=== PATIENT | male | born 1945 | race Caucasian/White ===

== ENCOUNTER 2016-12-27 09:00 | Emergency (ER) | payer OTHER, BC ==
[2016-12-27 09:18] VITALS: BP 138/84; PULSE 82; TEMP 97.7; BMI 29.3
[2016-12-27 09:25] LABS: PH,URINE 5.5 (4.5-8); URINE APPEARANCE Clear; URINE BILIRUBIN Negative (NEGATIVE); URINE GLUCOSE (UA) Negative (NEGATIVE); URINE KETONE Negative (NEGATIVE); URINE LEUK ESTERASE Negative (NEGATIVE); URINE NITRITE Negative (NEGATIVE); URINE PROTEIN Negative (NEGATIVE); URINE UROBILINOGEN 0.2 (0.2-1.0)
[2016-12-27 09:27] LABS: URINE BLOOD 1+ (NEGATIVE); URINE COLOR AMBER
[2016-12-27 09:47] LABS: URINE RBC 0-3 /hpf (0-3); URINE WBC 0-2 (3-5)
[2016-12-27] MEDS ORDERED: traMADol HCL 50 MG TABLET PO ONE (09:48)
--- NOTE | 2016-12-27 09:49 | PDOC ---
History of Present Illness - General Chief Complaint: Pain Stated Complaint: RIGHT GROIN PAIN Time Seen by Provider: 12/27/16 09:16 History Source: Patient Exam Limitations: No Limitations - History of Present Illness Travel History: No Initial Comments: 12/27/16 09:48 71y M hx of prostate ca s/p resection, htn, hl, PE on eliquis, kidney stones, presents with approx 1 week of R inguinal pain. The pt states the pain started off as mild, but worsens intermittently, and was more significant last night, he rates it approx 5-7/10. pt has been active, but hasnt really noticed if activity has worsend it or not. He did note that yesterday he walked 2 miles, and he was doing ok until the nigth when the pain worsened. Pt endorses feeling alittle bloated and gassy, but states that after passing gas/bms it does help resolved the bloated feeling but not the r inguinal pain. no noted masses/hernias. The patient denies any chest pain, shortness of breath, diaphoresis, nausea, vomiting, worsening of his pain after exertion. 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 Past History - Past Medical History Allergies/Adverse Reactions: Allergies Allergy/AdvReac Type Severity Reaction Status Date / Time tetanus immune globulin Allergy Severe Tongue and Verified 12/27/16 09:53 throat swelling enoxaparin sodium Allergy Verified 12/27/16 09:53 [From Lovenox] sulfamethoxazole Allergy Rash on Verified 12/27/16 09:53 [From Bactrim] palm of hand tetracycline [Tetracycline] Allergy Verified 12/27/16 09:53 trimethoprim [From Bactrim] Allergy Rash on Verified 12/27/16 09:53 palm of hand Penicillins AdvReac Severe dizzy Verified 12/27/16 09:53 TOMATO Allergy Tongue and Uncoded 12/27/16 09:53 throat swelling Home Medications: Ambulatory Orders Cholecalciferol (Vitamin D3) [Vitamin D3] 1,000 unit PO 2 CAPS DAILY capsule Famotidine [Pepcid] 40 mg PO BID PRN 12/27/16 Anemia: No Asthma: No Cancer: Yes (PROSTATE) Cardiac Disorders: No CVA: No COPD: No CHF: No DVT: Yes Dementia: No Diabetes: No GI Disorders: Yes (H/O COLONIC POLYPS) Disorders: Yes (PROSTATE CANCER) HTN: Yes Hypercholesterolemia: Yes Kidney Stones: Yes (LITHOTRIPSY) Liver Disease: Yes Seizures: No Thyroid Disease: No - Surgical History Abdominal Surgery: Yes Appendectomy: Yes Cardiac Surgery: No Cholecystectomy: No Lung Surgery: No Neurologic Surgery: No Orthopedic Surgery: Yes (LEFT KNEE SURGERY) - Immunization History Immunization Up to Date: No (ALLERGIC) - Suicide/Smoking/Psychosocial Hx Smoking Status: No Smoking History: Never smoked Have you smoked in the past 12 months: No Number of Cigarettes Smoked Daily: 0 Hx Alcohol Use: Yes Drug/Substance Use Hx: No Substance Use Type: None Hx Substance Use Treatment: No Review of Systems - Review of Systems Able to Perform ROS?: Yes Comments:: 12/27/16 09:56 Constitutional - no reported Fever, Chills, HEENT: no reported vision changes, sore throat Respiratory: no reported cough, sob, hemoptysis Cardiac: no reported chest pain, palpitations, light headedness, leg swelling Abd/GI: +abd pain, bloated/gassy no reported nausea, vomiting, blood per rectum , melena, diarrhea : no reported dysuria, frequency, discharge Musculskelatal - no reported back pain, joint swelling skin - no reported bruising, erythema, rash neurological: no reported headache, numbness, focal weakness, tingling, ataxia, hematologic: no reported anemia, easy bruising, easy bleeding *Physical Exam - Vital Signs Last Vital Signs Temp Pulse Resp BP Pulse Ox 97.7 F 82 15 138/84 100 12/27/16 09:09 12/27/16 09:09 12/27/16 09:09 12/27/16 09:09 12/27/16 09:09 - Physical Exam Comments: 12/27/16 09:57 GENERAL: The patient is awake, alert, and fully oriented, Nontoxic - in no acute distress. HEAD: Normocephalic, atraumatic. EYES: extraocular movements intact, sclera anicteric, conjunctiva clear. ENT: Normal voice, Moist mucous membranes. NECK: Normal range of motion, supple LUNGS: Breath sounds equal, clear to auscultation bilaterally. No wheezes, no rhonchi, no rales. HEART: Regular rate and rhythm, normal S1 and S2 without murmur, rub or gallop. ABDOMEN: Soft, nontender, normoactive bowel sounds. No guarding, no rebound. No CVA tenderness, no hernias appreciated : no testicular tenderness/erythmea/induration EXTREMITIES: Normal range of motion, no edema. No clubbing or cyanosis. No cords, erythema, or tenderness. NEUROLOGICAL: No facial assymetry, Normal speech PSYCH: Normal mood, normal affect. SKIN: Warm, Dry, normal turgor, Heart Score/ECG Review - ECG Impressions Comment:: 12/27/16 11:55 Twelve-lead EKG was performed and reviewed by me. There is normal sinus rhythm with a normal rate. Rate of 67 The axis is normal. The intervals are normal. There is normal R wave progression There are no ST or T wave abnormalities. No significant changes when compared with prior ekg ED Treatment Course - ADDITIONAL ORDERS Additional order review: Laboratory Results 12/27/16 09:19 Urine Color Sherice Urine Appearance Clear Urine pH 5.5 Ur Specific [place] 1.010 Urine Protein Negative Urine Glucose (UA) Negative Urine Ketones Negative Urine Blood 1+ H Urine Nitrite Negative Urine Bilirubin Negative Urine Urobilinogen 0.2 Ur Leukocyte Esterase Negative Urine RBC 0-3 Urine WBC 0-2 Ur Epithelial Cells Rare Medical Decision Making - Medical Decision Making 12/27/16 09:57 71y m presenting with r adnexal pain for about a week that wornsed last night w/ o n/v, diarhea, hematuria, dysuria differential for the pts symptmos includes kidney stones, msk pain pt had lab worked that showed his ckd ua with trace blood will ck another urine, i f+blood will obtain spiral ct will give pt some mesd for pain (rquested tramadol as it helped hi a few days ago) 12/27/16 11:[address] shows no acute pathology no stones pt feeling improfed suspect pts pain may be msk in nature will have pt rest, take tylnoel and fu with dr. shepherd mid next week to reasesss the pt will have pt come back to the ED for evaluation if pain worsens or he has any systemic complaints I discussed the physical exam findings, ancillary test results and final diagnoses with the patient. I answered all of the patient's questions. The patient was satisfied with the care received and felt comfortable with the discharge plan and treatment plan. The patient will call their primary care physician within 24 hours to arrange follow-up and will return to the Emergency Department with any new, persistent or worsening symptoms. *DC/Admit/Observation/Transfer Diagnosis at time of Disposition: Abdominal pain Qualifiers: Abdominal location: right lower quadrant Qualified Code(s): R10.31 - Right lower quadrant pain - Discharge Dispostion Disposition: HOME Condition at time of disposition: Improved Admit: No - Referrals Referrals: Dante Shepherd MD [Primary Care Provider] - - Patient Instructions Printed Discharge Instructions: DI for Abdominal Pain-Adult Additional Instructions: I suspect the nature of your pain may be muscular. Take tylenol for your pain. Rest, avoid any strenous activities. Return to the emergency department immediately with ANY new, persistent or worsening symptoms including worsening abdominal pain, fevers, inability to tolerate oral intake, chest pain, shortness of breath or any other concerns. Stay well hydrated. You MUST call and follow up with Dr Shepherd in 3 days for reevaluation. Your emergency department visit is not complete without a followup with your doctor for reevaluation. Please make sure your doctor reviews the results of your emergency evaluation. Print Language: ITALIAN
[2016-12-27] MEDS ORDERED: traMADol HCL 50 MG TABLET ONE (09:50)
--- NOTE | 2016-12-30 10:53 | EKG ---
Test Reason : Blood Pressure : / mmHG Vent. Rate : 067 BPM Atrial Rate : 067 BPM P-R Int : 190 ms QRS Dur : 094 ms QT Int : 398 ms P-R-T Axes : 026 -10 000 degrees QTc Int : 420 ms NORMAL SINUS RHYTHM Mild RVCd WHEN COMPARED WITH ECG OF 30-SEP-2014 08:42, INVERTED T WAVES HAVE REPLACED NONSPECIFIC T WAVE ABNORMALITY IN INFERIOR LEADS Confirmed by MD MIMI, BRITTANY ([id number]) on 12/30/2016 10:53:09 AM Referred By: Cookie HERNANDEZ Confirmed By:BRITTANY LE MD
== END 2016-12-27 12:00 | disposition home or self-care (01) ==
LOC: FER 09:00
DX: R10.31 Right lower quadrant pain (principal); I10 Essential (primary) hypertension; E78.5 Hyperlipidemia, unspecified; Z86.711 Personal history of pulmonary embolism; Z79.01 Long term (current) use of anticoagulants; Z85.46 Personal history of malignant neoplasm of prostate
CPT/HCPCS: 74176; 81003; 81015; 93005; 99282-25

== ENCOUNTER 2017-08-08 10:32 | Emergency (ER) | payer OTHER, BC ==
--- NOTE | 2017-08-08 10:36 | PDOC ---
History of Present Illness - General Chief Complaint: Pain Stated Complaint: CHEST PAIN ACROSS CHEST WORSE WITH MOVEMENT/TOUCH Time Seen by Provider: 08/08/17 10:36 History Source: Patient Exam Limitations: No Limitations - History of Present Illness Initial Comments: 08/08/17 11:20 Pt presents to the ED complaining of pleuritic chest pain that started last night. Pain is localized to a point on the R side of his chest between his third and fourth ribs. Pain is constant and 3-4 in severity, but becomes very sharp and 9-10 in intensity when he takes a deep breath. Denies shortness of breath, fever or cough. Denies injury to his chest wall or rash. History of PE , for which he takes eliquis. States that his PE presented with similar pain. Reports strict compliance with his eliquis. Denies cardiac history, and states that he had a CTA recently which shows no coronary disease. Has a remote history of prostate CA 08/08/17 11:24 Past History - Past Medical History Allergies/Adverse Reactions: Allergies Allergy/AdvReac Type Severity Reaction Status Date / Time tetanus immune globulin Allergy Severe Tongue and Verified 08/08/17 10:35 throat swelling enoxaparin sodium Allergy Verified 08/08/17 10:36 [From Lovenox] sulfamethoxazole Allergy Rash on Verified 08/08/17 10:36 [From Bactrim] palm of hand tetracycline [Tetracycline] Allergy Verified 08/08/17 10:36 trimethoprim [From Bactrim] Allergy Rash on Verified 08/08/17 10:36 palm of hand Penicillins AdvReac Severe dizzy Verified 08/08/17 10:37 TOMATO Allergy Tongue and Uncoded 08/08/17 10:38 throat swelling Home Medications: Ambulatory Orders Cholecalciferol (Vitamin D3) [Vitamin D3] 2,000 unit PO DAILY capsule 01/15/15 Famotidine [Pepcid] 40 mg PO PRN PRN 12/27/16 Rosuvastatin [Crestor -] 1 tab PO DAILY 08/08/17 Tramadol HCl 50 mg PO PRN 08/08/17 Anemia: No Asthma: No Cancer: Yes (PROSTATE) Cardiac Disorders: No CVA: No COPD: No CHF: No DVT: Yes Dementia: No Diabetes: No GI Disorders: Yes (H/O COLONIC POLYPS) Disorders: Yes (PROSTATE CANCER) HTN: Yes Hypercholesterolemia: Yes Kidney Stones: Yes (LITHOTRIPSY) Liver Disease: Yes Seizures: No Thyroid Disease: No - Surgical History Abdominal Surgery: Yes Appendectomy: Yes Cardiac Surgery: No Cholecystectomy: No Lung Surgery: No Neurologic Surgery: No Orthopedic Surgery: Yes (LEFT KNEE SURGERY) - Immunization History Immunization Up to Date: No (ALLERGIC) - Suicide/Smoking/Psychosocial Hx Smoking Status: No Smoking History: Never smoked Have you smoked in the past 12 months: No Number of Cigarettes Smoked Daily: 0 Hx Alcohol Use: Yes Drug/Substance Use Hx: No Substance Use Type: None Hx Substance Use Treatment: No Review of Systems - Review of Systems Able to Perform ROS?: Yes Is the patient limited Maori proficient: No Constitutional: No: Symptoms Reported, See HPI, Chills, Diaphoresis, Fever, Loss of Appetite, Malaise, Night Sweats, Weakness, Weight Stable, Unintentional Wgt. Loss, Unexplained wgt Loss, Other HEENTM: No: Symptoms Reported, See HPI, Eye Pain, Blurred Vision, Tearing, Recent change in vision, Double Vision, Cataracts, Ear Pain, Ocular Prothesis, Ear Discharge, Nose Pain, Nose Congestion, Tinnitus, Nose Bleeding, Hearing Loss , Throat Pain, Throat Swelling, Mouth Pain, Dental Problems, Difficulty Swallowing, Mouth Swelling, Other Respiratory: No: Symptoms reported, See HPI, Cough, Orthopnea, Shortness of Breath, SOB with Exertion, SOB at Rest, Stridor, Wheezing, Productive cough, Hemoptysis, Other Cardiac (ROS): Yes: Chest Pain. No: Symptoms Reported, See HPI, Edema, Irregular Heart Rate, Lightheadedness, Palpitations, Syncope, Chest Tightness, Other ABD/GI: No: Symptoms Reported, See HPI, Abdominal Distended, Abd. Pain w/ defecation, Blood Streaked Bowels, Constipated, Diarrhea, Difficulty Swallowing , Nausea, Poor Appetite, Poor Fluid Intake, Rectal Bleeding, Vomiting, Indigestion, Abdominal cramping, Tarry Stools, Other : No: Symptoms Reported, See HPI, Burning, Dysuria, Discharge, Frequency, Flank Pain, Hematuria, Incontinence, Pain, Urgency, Testicular Mass, Testicular Swelling, Lesions, Testicular Pain, Other Musculoskeletal: No: Symptoms Reported, See HPI, Back Pain, Gout, Joint Pain, Joint Swelling, Muscle Pain, Muscle Weakness, Neck Pain, Joint Stiffness, Other Integumentary: No: Symptoms Reported, See HPI, Bruising, Change in Color, Change in Hair/Nails, Dryness, Erythema, Flushing, Lesions, Lumps, Pallor, Pruritus, Rash, Sweating, Other Neurological: No: Symptoms reported, See HPI, Headache, Numbness, Paresthesia, Pre-Existing Deficit, Seizure, Tingling, Tremors, Weakness, Unsteady Gait, Ataxia, Dizziness, Other Psychiatric: No: Anxiety, Depression, Frequent Crying, Stressors, Sleep Pattern Change, Emotional Problems, Mood Swings, Change in Appetite, Other *Physical Exam - Physical Exam General Appearance: Yes: Nourished, Appropriately Dressed. No: Apparent Distress, Disheveled, Mild Distress, Moderate Distress, Severe Distress, Alcohol on Breath, Intoxicated, Cachetic, Obese, Thin, Other HEENT: positive: Normal ENT Inspection, Normal Voice Neck: positive: Supple Respiratory/Chest: positive: Chest Tender, Lungs Clear, Normal Breath Sounds. negative: Respiratory Distress, Accessory Muscle Use, Labored Respiration, Rapid RR, Decreased Breath Sounds, Paradoxal Breathing, Crackles, Rales, Rhonchi , Stridor, Wheezing, Hyperresonant, Dullness, Plerual Rub, Other Cardiovascular: positive: Regular Rhythm, Regular Rate, S1, S2 Gastrointestinal/Abdominal: positive: Flat, Soft Musculoskeletal: positive: Normal Inspection Extremity: positive: Normal Inspection Integumentary: positive: Normal Color, Dry, Warm Neurologic: positive: Fully Oriented, Alert, Normal Mood/Affect ED Treatment Course - LABORATORY CBC & Chemistry Diagram: 08/08/17 11:23 08/08/17 11:29 Medical Decision Making - Medical Decision Making 08/08/17 11:47 Pt presents to the ED complaining of pleuritic chest pain that began last night. History of PE, on eliquis. Pain is likely costochondritis, but PE and ACS remain on the differential. EKg shows normal sinus rhythm with no signs of ischemia. Will check labs and D dimer, and likely discharge home if d dimer is negative. Will check CT PE if d dimer is positive. 08/08/17 13:01 D dimer is negative. Patient feels improved after Iv tylenol. Will discharge home. *DC/Admit/Observation/Transfer Diagnosis at time of Disposition: Costochondral chest pain - Discharge Dispostion Disposition: HOME Condition at time of disposition: Good Decision to Admit order: No - Referrals - Patient Instructions Printed Discharge Instructions: DI for Atypical Chest Pain Additional Instructions: return to the ED for severe chest pain or shortness of breath, pain with fever, other new or worsening symptoms. Return for severe lightheadness or passing out. Call Dr. Shepherd for follow up on Thursday. - Post Discharge Activity
[2017-08-08 10:52] VITALS: BP 138/79; PULSE 83; TEMP 98.3; BMI 29.3
[2017-08-08 11:26] LABS: BASO % 2.4 % (0-2.0); EOS % 0.5 % (0-4.5); HEMATOCRIT 43.8 % (35.4-49); HEMOGLOBIN 14.9 GM/dl (11.7-16.9); LYMPH % 21.6 % (8-40); MCH 31.4 pg (25.7-33.7); MEAN CELL VOLUME 92.3 fl (80-96); MEAN PLT VOLUME 7.9 fl (7.5-11.1); MONO % 8.9 % (3.8-10.2); NEUT % 66.6 % (42.8-82.8); PLATELET COUNT 224 K/MM3 (134-434); RBC 4.75 M/mm3 (4.00-5.60); RDW 12.9 % (11.9-15.9); WHITE BLOOD COUNT 4.5 K/mm3 (4.0-10.8)
[2017-08-08 11:40] LABS: ALBUMIN 4.1 g/dl (3.5-5.0); ALK PHOS 47 U/L (32-92); ANION GAP 6 (8-16); BLOOD UREA NITROGEN 24 mg/dl (7-18); CALCIUM 8.9 mg/dl (8.4-10.2); CHLORIDE 104 mmol/L (98-107); CO2 27 mmol/L (22-28); CREATININE 1.5 mg/dl (0.6-1.3); GLUCOSE,RANDOM 103 mg/dl (74-106); POTASSIUM 4.5 mmol/L (3.5-5.1); SGOT/AST 19 U/L (10-42); SGPT/ALT 22 U/L (10-40); SODIUM 137 mmol/L (136-145); TOT PROT 6.3 g/dl (6.4-8.3)
[2017-08-08 11:42] LABS: BILIRUBIN,TOTAL < 0.5 mg/dl (0.2-1.0)
[2017-08-08] MEDS ORDERED: ACETAMINOPHEN 1000 MG/100 ML VIAL (NON FORMULARY) IVPB ONE (12:33)
[2017-08-08] MEDS ORDERED: ACETAMINOPHEN INJECTION 100 ML IVPB ONE (12:34)
--- NOTE | 2017-08-09 22:36 | EKG ---
Test Reason : Blood Pressure : / mmHG Vent. Rate : 074 BPM Atrial Rate : 074 BPM P-R Int : 188 ms QRS Dur : 100 ms QT Int : 384 ms P-R-T Axes : 044 -02 007 degrees QTc Int : 426 ms NORMAL SINUS RHYTHM INCOMPLETE RIGHT BUNDLE BRANCH BLOCK BORDERLINE ECG Confirmed by MAGDALENO CASTILLO MD ([id number]) on 08/09/2017 10:36:20 PM Referred By: RIC Confirmed By:MAGDALENO CASTILLO MD
== END 2017-08-08 13:20 | disposition home or self-care (01) ==
LOC: FER 10:32
PROC: 3E033NZ Introduction of Analgesics, Hypnotics, Sedatives into Peripheral Vein, Percutaneous Approach (ICD-10-PCS; principal; 2017-08-08)
DX: R07.89 Other chest pain (principal); M94.0 Chondrocostal junction syndrome [Tietze]; Z86.711 Personal history of pulmonary embolism; Z79.01 Long term (current) use of anticoagulants; Z85.46 Personal history of malignant neoplasm of prostate; I10 Essential (primary) hypertension; E78.00 Pure hypercholesterolemia, unspecified
CPT/HCPCS: 36415; 80053; 82550; 84484; 85025; 85379; 93005; 99283-25; J0131

== ENCOUNTER 2019-01-31 09:26 | Day surgery (SDC) | payer OTHER, BC ==
[2019-01-28 11:52] VITALS: BMI 29.9
[2019-01-31] MEDS ORDERED: PROPOFOL 20 ML ONE ×3 (10:25)
[2019-01-31 11:34] VITALS: TEMP 97.6
[2019-01-31 11:56] VITALS: BP 122/76; PULSE 70
--- NOTE | 2019-02-02 17:28 | PATH ---
Surgical Pathology Report Patient Name: ALEXANDRO SNOWDEN JR [facility]. Rec. #: [id number] /Age/Gender: 1945 (Age: 73) / M Account: [id number] Location: [facility] Taken: 01/31/2019 Received: 01/31/2019 Reported: 02/02/2019 Physicians: Samson Gastelum M.D. Specimen(s) Received A: SECOND PORTION DUODENUM B: ANTRUM Clinical History GERD, history of polyps, family history of colon cancer Postoperative diagnosis: Gastritis, diverticulosis Final Diagnosis A. DUODENUM, SECOND PORTION, BIOPSY: DUODENAL MUCOSA WITHOUT SIGNIFICANT PATHOLOGIC FINDINGS. B. GASTRIC ANTRUM, BIOPSY: GASTRIC ANTRAL MUCOSA WITH MILD CHRONIC GASTRITIS. IMMUNOHISTOCHEMICAL STAIN FOR H. PYLORI IS NEGATIVE. Electronically Signed Laurie Dotson M.D. Gross Description A. Received in formalin, labeled "biopsy second portion of duodenum" are 2 gray, irregular portions of soft tissue averaging 0.4 cm. in greatest dimension. The specimens are submitted in toto in one cassette. B. Received in formalin, labeled "biopsy gastric antrum" are 2 gray, irregular portions of soft tissue averaging 0.3 cm. in greatest dimension. The specimens are submitted in toto in one cassette. 02/01/2019 saudi02/01/2019
== END 2019-01-31 12:00 | disposition home or self-care (01) ==
LOC: FASU-ENDO 09:26
PROVIDERS: ATTEND Internal Medicine Gastroenterology
PROC: 0DB98ZX Excision of Duodenum, Via Natural or Artificial Opening Endoscopic, Diagnostic (ICD-10-PCS; 2019-01-31)
PROC: 0DB68ZX Excision of Stomach, Via Natural or Artificial Opening Endoscopic, Diagnostic (ICD-10-PCS; 2019-01-31)
PROC: 0DJD8ZZ Inspection of Lower Intestinal Tract, Via Natural or Artificial Opening Endoscopic (ICD-10-PCS; principal; 2019-01-31 10:49)
DX: K29.50 Unspecified chronic gastritis without bleeding (principal); K57.30 Diverticulosis of large intestine without perforation or abscess without bleeding; Z86.010 Personal history of colon polyps; Z80.0 Family history of malignant neoplasm of digestive organs; Z83.71 Family history of colonic polyps; R12 Heartburn
CPT/HCPCS: 43239; G0105; 88305-TC; 88342-TC

== ENCOUNTER 2019-02-02 19:28 | Emergency (ER) | payer OTHER, BC ==
[2019-02-02 19:47] VITALS: BP 127/82; PULSE 96; TEMP 98.5; BMI 29.9
[2019-02-02] MEDS ORDERED: DALBAVANCIN HCL 1,500 MG in DEXTROSE 5%-WATER - 500 ML IVPB ONE (19:48)
[2019-02-02] MEDS ORDERED: DALBAVANCIN HCL 500 MG VIAL (RESTRICTED TO ID ONLY) IVPB ONE (19:57)
--- NOTE | 2019-02-02 20:00 | PDOC ---
Documentation entered by Isabel Villalta SCRIBE, acting as scribe for Michael Macdonald MD. Michael Macdonald MD: This documentation has been prepared by the Pawan hardin Aiswarya, SCRIBE, under my direction and personally reviewed by me in its entirety. I confirm that the documentation accurately reflects all work, treatment, procedures, and medical decision making performed by me. History of Present Illness - General Chief Complaint: Wound Stated Complaint: SMALL CYST TO LOWER ABDOMEN SLIGHT REDNESS AROU Time Seen by Provider: 02/02/19 19:35 History Source: Patient Exam Limitations: No Limitations - History of Present Illness Initial Comments: 02/02/19 20:00 Assessment and plan: This is a 73-year-old male who comes in complaining of some anterior abdominal wall discomfort secondary to a cyst that he has had there for several years that has never been a problem in the past. Patient said he did have an ultrasound a number years ago that revealed that it was a cyst however over the last few days it has become more firm and tender. Patient is complaining of associated erythema to the surrounding skin and the cyst. On exam the cyst was well circumscribed it was somewhat tender and firm there was no palpable collection or abscess, Patient is allergic to Bactrim so we will give him Dalvance as a one-time dose for a cellulitis Patient discharged with instructions to follow-up with his primary care doctor or return to the ED if is symptoms are worse in 24 hours or not better in 48. 02/02/19 20:18 The patient is a 73 year old male, with a significant PMH of DVT, colonic polyps, HTN, HDL, kidney stones and sepsis, who presents to the emergency department with an infected cyst that occurred several years ago. Patient states he did an ultrasound a few years ago which confirmed it was a cyst located below the umbilicus and never had a problem with it in the past. Patient comes in today currently complaining of abdominal pain and associated erythema surrounding the cyst. The patient denies chest pain, shortness of breath, headache and dizziness. Denies fever, chills, nausea, vomit, diarrhea and constipation. Denies any numbness or tingling. PAST MEDICAL HISTORY: DVT, colonic polyps, HTN, HDL, kidney stones, sepsis PAST SURGICAL HISTORY: appendectomy and left knee surgery FAMILY HISTORY: no pertinent history SOCIAL HISTORY: Pt lives with family and is employed. MEDICATIONS: reviewed ALLERGIES: As per nursing notes Adult ROS General: No fevers or chills, no weakness, no weight loss HEENT: No change in vision. No sore throat,. No ear pain CardioVascular: No chest pain or shortness of breath Respiratory:No cough, or wheezing. Gastrointestinal: no nausea, vomiting, diarrhea or constipation, No rectal bleeding Genitourinary: No dysuria, hematuria, or frequency Musculoskeletal: No joint or muscle pain or swelling Neurologic: No headache, vertigo, dizziness or loss of consciousness Psychiatric: nor depression Skin: +nodule on abdomen Endocrine: no increased thirst or abnormal weight change Allergic: no skin or latex allergy All other systems reviewed and normal Basic PE GENERAL: The patient is awake, alert, and fully oriented, in no acute distress. HEAD: Normal with no signs of trauma. EYES: Pupils equal, round and reactive to light, extraocular movements intact, sclera anicteric, conjunctiva clear. EXTREMITIES: Normal range of motion, no edema. NEUROLOGICAL: Normal speech, normal gait. PSYCH: Normal mood, normal affect. SKIN:+Firm well defined slightly tenderness and palpable nodule on the anterior abdomen below umbilicus, proximally 1 cm diameter, with surrounding erythema and increased warmth proximally 6 cm diameter. Past History - Past Medical History Allergies/Adverse Reactions: Allergies Allergy/AdvReac Type Severity Reaction Status Date / Time tetanus immune globulin Allergy Severe Tongue and Verified 02/02/19 19:30 throat swelling enoxaparin sodium Allergy Verified 02/02/19 19:30 [From Lovenox] sulfamethoxazole Allergy Rash on Verified 02/02/19 19:31 [From Bactrim] palm of hand tetracycline [Tetracycline] Allergy OPEN SORES Verified 02/02/19 19:31 trimethoprim [From Bactrim] Allergy Rash on Verified 02/02/19 19:31 palm of hand Penicillins AdvReac Severe dizzy Verified 02/02/19 19:31 TOMATO Allergy Intermediate Tongue and Uncoded 02/02/19 19:34 throat swelling Home Medications: Ambulatory Orders Rosuvastatin [Crestor -] 40 tab PO HS 08/08/17 Losartan Potassium 100 mg PO HS 09/04/17 Aspirin [Aspirin EC] 81 mg PO DAILY 01/28/19 Pantoprazole Sodium 40 mg PO HS 01/28/19 Famotidine [Pepcid -] 40 mg PO DAILY 02/02/19 Anemia: No Asthma: No Cancer: Yes (PROSTATE) Cardiac Disorders: No CVA: No COPD: No CHF: No DVT: Yes Dementia: No Diabetes: No GI Disorders: Yes (H/O COLONIC POLYPS) Disorders: Yes (PROSTATE CANCER) HTN: Yes Hypercholesterolemia: Yes Kidney Stones: Yes Liver Disease: Yes Seizures: No Thyroid Disease: No Other medical history: SEPSIS UTI, PULMONARY EMBOLI - Surgical History Abdominal Surgery: Yes Appendectomy: Yes Cardiac Surgery: No Cholecystectomy: No Lung Surgery: No Neurologic Surgery: No Orthopedic Surgery: Yes (LEFT KNEE SURGERY) - Immunization History Immunization Up to Date: No (ALLERGIC) - Psycho Social/Smoking Cessation Hx Smoking Status: No Smoking History: Never smoked Have you smoked in the past 12 months: No Number of Cigarettes Smoked Daily: 0 Information on smoking cessation initiated: No Hx Alcohol Use: No Drug/Substance Use Hx: No Substance Use Type: Alcohol Hx Substance Use Treatment: No *Physical Exam - Vital Signs Last Vital Signs Temp Pulse Resp BP Pulse Ox 98.5 F 96 H 18 127/82 99 02/02/19 19:30 02/02/19 19:30 02/02/19 19:30 02/02/19 19:30 02/02/19 19:30 ED Treatment Course - LABORATORY CBC & Chemistry Diagram: 02/02/19 19:57 Discharge - Discharge Information Problems reviewed: Yes Clinical Impression/Diagnosis: Cellulitis, abdominal wall Condition: Stable Disposition: HOME - Admission No - Follow up/Referral Referrals: Dante Shepherd MD [Primary Care Provider] - - Patient Discharge Instructions Additional Instructions: You are given a one-time dose of antibiotics IV in the emergency room called [facility] you are [place] treated for the probable infection of the skin on your abdominal wall . If you are not better in 48 hours or worse in 24 hours it is important that you return to the emergency department for reevaluation. Return to the emergency department immediately with ANY new, persistent or worsening symptoms. Continue any medications as previously prescribed by your physician. You should follow up with your primary doctor as soon as possible regarding today's emergency department visit. . Please make sure your doctor reviews the results of your emergency evaluation. Thank you for coming to the Emergency Department today for your care. It was a pleasure to see you today. Please note that your evaluation is INCOMPLETE until you follow-up with your doctor. - Post Discharge Activity
[2019-02-02 20:08] LABS: BASO % 2.2 % (0-2.0); EOS % 0.5 % (0-4.5); HEMATOCRIT 43.7 % (35.4-49); HEMOGLOBIN 14.7 GM/dl (11.7-16.9); LYMPH % 14.4 % (8-40); MCH 31.4 pg (25.7-33.7); MCHC 33.7 g/dl (32.0-35.9); MEAN CELL VOLUME 93.4 fl (80-96); MEAN PLT VOLUME 8.3 fl (7.5-11.1); NEUT % 75.9 % (42.8-82.8); PLATELET COUNT 236 K/MM3 (134-434); RBC 4.68 M/mm3 (4.00-5.60); RDW 12.6 % (11.9-15.9); WHITE BLOOD COUNT 7.6 K/mm3 (4.0-10.8)
== END 2019-02-02 22:11 | disposition home or self-care (01) ==
LOC: FER 19:28
DX: L02.211 Cutaneous abscess of abdominal wall (principal); Z85.46 Personal history of malignant neoplasm of prostate; I10 Essential (primary) hypertension; E78.00 Pure hypercholesterolemia, unspecified; N20.0 Calculus of kidney; I26.99 Other pulmonary embolism without acute cor pulmonale; K92.9 Disease of digestive system, unspecified
CPT/HCPCS: 36415; 85025; 99283-25; J0875

== ENCOUNTER 2019-02-04 14:19 | Emergency (ER) | payer OTHER, BC ==
[2019-02-04 14:34] VITALS: BP 136/73; PULSE 90; TEMP 98; BMI 29.9
--- NOTE | 2019-02-04 14:47 | PDOC ---
Suture Removal/Wound Check HPI - History of Present Illness Chief Complaint: Revisit,Wound Recheck Stated Complaint: WOUND CHECK Time Seen by Provider: 02/04/19 14:25 History Source: Yes: Patient Exam Limitations: Yes: No Limitations - Onset of Previous Treatment Comment:: 02/04/19 14:48 HPI 73 year old male, with a significant PMH of DVT/PE, colonic polyps, HTN, HDL, kidney stones and sepsis, who presents to the emergency department with an infected cyst on abdominal wall recheck from 2 days ago on 02/02/19. he received dose of Dalvance at that time. the redness over his lower abdomen region improved, but areas started to become painful again today. Denies fever, chills, chest pain, SOB, palpitation, dizziness, weakness, N, V, D , abdominal pain, bladder and bowel problems, focal weakness/paresthesias, leg swelling/pain, rash. no discharge, no malodor. Allergies: tetanus lovenox, tetracycline, pcn. Past Medical History/PSH: as above Social history: Lives with family. No tobacco, ETOH or drug use. Meds: as documented in EMR Family history: noncontributory Review of systems Constitutional: no fevers or chills. No weakness HEENT: no headache or dizziness. CVS: no cp or syncope. Resp: no sob. No cough. Gastrointestinal: no abdominal pain, nausea, vomiting, diarrhea. MUSCULOSKELETAL: No joint pain and swelling. No neck or back pain. SKIN: no no discharge, no rash. +wound, +redness Hematologic: no easy bruising/bleeding. NEUROLOGIC: No headache, dizziness, LOC or altered mental status. No weakness, numbness or tingling. Allergic/Immunologic: medication allergies All other systems reviewed and negative, or as documented in HPI. Physical exam General: Well appearing, awake and alert, NAD. HEENT: NCAT, PERRL, EOMI, clear conjunctiva, anicteric, moist mucus membranes, clear oropharynx, no oral lesions.. Neck: neck supple, FROM Resp: CTAB, normal and even respirations, no respiratory distress CVS: RRR, no murmurs, 2+ peripheral pulses throughout, no peripheral edema Abdomen: soft, NTND, no rebound or guarding. +lower abdomen wall with small area of faint erythema, central area with fluctuance and tenderness. Back: nontender, normal inspection and ROM MSK: no edema, BELL x4, ROM intact. No clubbing or cyanosis. normal bulk and tone. Neuro: alert, oriented appropriately; no focal neurologic deficits Psych: Calm and cooperative Skin: warm and well perfused, cap refill <2 sec, normal color, +lower abdomen wall with small area of faint erythema, central area with fluctuance and tenderness. 02/04/19 15:36 02/04/19 18:05 Past History - Past Medical History Allergies/Adverse Reactions: Allergies Allergy/AdvReac Type Severity Reaction Status Date / Time tetanus immune globulin Allergy Severe Tongue and Verified 02/02/19 19:30 throat swelling enoxaparin sodium Allergy Verified 02/02/19 19:30 [From Lovenox] sulfamethoxazole Allergy Rash on Verified 02/02/19 19:31 [From Bactrim] palm of hand tetracycline [Tetracycline] Allergy OPEN SORES Verified 02/02/19 19:31 trimethoprim [From Bactrim] Allergy Rash on Verified 02/02/19 19:31 palm of hand Penicillins AdvReac Severe dizzy Verified 02/02/19 19:31 TOMATO Allergy Intermediate Tongue and Uncoded 02/02/19 19:34 throat swelling Home Medications: Ambulatory Orders Rosuvastatin [Crestor -] 40 tab PO HS 08/08/17 Losartan Potassium 100 mg PO HS 09/04/17 Aspirin [Aspirin EC] 81 mg PO HS 01/28/19 Pantoprazole Sodium 40 mg PO HS 01/28/19 Famotidine [Pepcid -] 40 mg PO DAILY 02/02/19 Cholecalciferol (Vitamin D3) [D3 Dots] 2,000 unit PO DAILY 02/04/19 Anemia: No Asthma: No Cancer: Yes (PROSTATE) Cardiac Disorders: No CVA: No COPD: No CHF: No DVT: Yes Dementia: No Diabetes: No GI Disorders: Yes (H/O COLONIC POLYPS) Disorders: Yes (PROSTATE CANCER) HTN: Yes Hypercholesterolemia: Yes Kidney Stones: Yes Liver Disease: Yes Seizures: No Thyroid Disease: No - Surgical History Abdominal Surgery: Yes Appendectomy: Yes Cardiac Surgery: No Cholecystectomy: No Lung Surgery: No Neurologic Surgery: No Orthopedic Surgery: Yes (LEFT KNEE SURGERY) - Immunization History Immunization Up to Date: No (ALLERGIC) - Psycho Social/Smoking Cessation Hx Smoking Status: No Smoking History: Never smoked Have you smoked in the past 12 months: No Number of Cigarettes Smoked Daily: 0 Hx Alcohol Use: No Drug/Substance Use Hx: No Substance Use Type: Alcohol Hx Substance Use Treatment: No *Physical Exam - Vital Signs Last Vital Signs Temp Pulse Resp BP Pulse Ox 98.0 F 90 17 136/73 99 02/04/19 14:20 02/04/19 14:20 02/04/19 14:20 02/04/19 14:20 02/04/19 14:20 Procedures - Incision and Drainage I&D Site: Left: Abdomen Betadine cleansed: Yes Anesthesia: 1% Lidocaine Volume(ml): 2 Blade Size: 11 Attempts: 1 Plain Packing: No Complications: none Dressing: Yes Progress: 02/04/19 18:05 sebaceous cyst, infected; copious malodorous discharge manually expressed - Bedside Ultrasound Bedside Ultrasound: Skin Remarks: 02/04/19 16:00 POCUS soft tissue performed at bedside for abdominal wall redness/cellulitis, views obtained: transverse and sagittal. findings include 2.3 x 1.6cm hypoechoic fluid collection with debris in well circumscribed area under area of fluctuance/erythema on abdominal wall. Impression: abdominal wall abscess/infected cyst. Medical Decision Making - Medical Decision Making 02/04/19 18:06 Vital Signs Temperature 98.0 F 02/04/19 14:20 Pulse Rate 90 02/04/19 14:20 Respiratory Rate 17 02/04/19 14:20 Blood Pressure 136/73 02/04/19 14:20 O2 Sat by Pulse Oximetry (%) 99 02/04/19 14:20 Bedside ultrasound was done with a 2.3 x 1.6 cm hyperechoic fluid filled cavity with debris, suspecting infected sebaceous cyst versus abscess. Given the area is fluctuant and pain has returned will perform incision and drainage, see separate procedure note. No complications, copious thick discharge was removed with manual expression. Area has been demarcated already erythema has improved. He has no systemic findings no fevers or chills, no abdominal tenderness doubt any intra-abdominal tracking or infection. No need for further antibiotics as the infected sebaceous cyst had appropriate incision and drainage done, wound cultures have been sent. Told patient to return in 2 days for wound recheck. Keep the area clean and dry, topical bacitracin was placed with Band-Aid. Patient and family made aware of the impression and plan, agreeable for return and wound recheck in 2 days. Discharge - Discharge Information Problems reviewed: Yes Clinical Impression/Diagnosis: Infected sebaceous cyst of skin Condition: Good Disposition: HOME - Admission No - Follow up/Referral Referrals: Dante Shepherd MD [Primary Care Provider] - - Patient Discharge Instructions Patient Printed Discharge Instructions: DI for Incision and Drainage of a Skin Abscess Additional Instructions: My progress you had an incision and drainage performed on your infected sebaceous cyst on your abdominal wall, area has been circumscribed continue to monitor for signs of infection including worsening redness, pain, bleeding, swelling, fevers or chills. Your cyst was incised and wound culture will be sent. You are to come back in 2 days for wound recheck. Keep the area clean and dry, you may put topical bacitracin and a Band-Aid over and clean it 2-3 times a day starting tomorrow. - Post Discharge Activity
[2019-02-04] MEDS ORDERED: DALBAVANCIN HCL 1,500 MG in DEXTROSE 5%-WATER - 500 ML IVPB ONE (15:34)
== END 2019-02-04 16:15 | disposition home or self-care (01) ==
LOC: FER 14:19
DX: Z48.01 Encounter for change or removal of surgical wound dressing (principal); Z88.8 Allergy status to other drugs, medicaments and biological substances
CPT/HCPCS: 87070; 87076; 87077; 87205; 99281-25

== ENCOUNTER 2019-02-06 08:20 | Emergency (ER) | payer OTHER, BC ==
--- NOTE | 2019-02-06 08:28 | PDOC ---
Suture Removal/Wound Check HPI - History of Present Illness Chief Complaint: Revisit,Wound Recheck Stated Complaint: wound Time Seen by Provider: 02/06/19 08:28 History Source: Yes: Patient Exam Limitations: Yes: No Limitations - Previous ED Treatment Type of procedure performed on last visit: Yes: I&D of Abscess - Onset of Previous Treatment Comment:: 02/06/19 08:28 HPI 73 year old male, with a significant PMH of DVT/PE on eliquis, colonic polyps, HTN, HDL, kidney stones and sepsis, who presents to the emergency department with an infected cyst on abdominal wall s/p I&D without complications from 2 days ago on 02/04/19. he received dose of Dalvance previously. pt states the redness over his lower abdomen region improved, no malodor or abnormal discharge /purulence, fevers or chills. +mild pain above the area of incision, no warmth. , he has been compliant with cleaning and wound dressings, using bacitracin and bandaid no meds needed for pain. Denies fever, chills, abdominal pain, no discharge, no malodor, warmth or skin discoloration or swelling. Allergies: tetanus lovenox, tetracycline, pcn. Past Medical History/PSH: as above Social history: Lives with family. No tobacco, ETOH or drug use. Meds: as documented in EMR Family history: noncontributory Review of systems Constitutional: no fevers or chills. No weakness HEENT: no headache or dizziness. Gastrointestinal: no abdominal pain, nausea, vomiting, diarrhea. MUSCULOSKELETAL: No joint pain and swelling. No neck or back pain. SKIN: no no discharge, no malodor, no rash. +wound, +redness Hematologic: no easy bruising/bleeding. +on blood thinner. NEUROLOGIC: No headache, dizziness, LOC or altered mental status. No weakness, numbness or tingling. Allergic/Immunologic: medication allergies All other systems reviewed and negative, or as documented in HPI. Physical exam General: Well appearing, awake and alert, NAD. Resp: normal and even respirations, no respiratory distress CVS: 2+ peripheral pulses throughout, no peripheral edema Abdomen: soft, NTND, no rebound or guarding. +lower mid abdomen wall with small area of faint erythema within demarcation, no warmth or purulence, s/p incision site healing, small area above the incision site with palp SQ firmness and minimally tender. MSK: no edema, BELL x4, ROM intact. Neuro: alert Skin: warm and well perfused, cap refill <2 sec, normal color, +lower abdomen wall with small area of faint erythema within demarcation, no warmth or purulence or swelling, s/p incision site healing, small area above the incision site with palp SQ firmness and minimally tender. Past History - Past Medical History Allergies/Adverse Reactions: Allergies Allergy/AdvReac Type Severity Reaction Status Date / Time tetanus immune globulin Allergy Severe Tongue and Verified 02/02/19 19:30 throat swelling enoxaparin sodium Allergy Verified 02/02/19 19:30 [From Lovenox] sulfamethoxazole Allergy Rash on Verified 02/02/19 19:31 [From Bactrim] palm of hand tetracycline [Tetracycline] Allergy OPEN SORES Verified 02/02/19 19:31 trimethoprim [From Bactrim] Allergy Rash on Verified 02/02/19 19:31 palm of hand Penicillins AdvReac Severe dizzy Verified 02/02/19 19:31 TOMATO Allergy Intermediate Tongue and Uncoded 02/02/19 19:34 throat swelling Home Medications: Ambulatory Orders Rosuvastatin [Crestor -] 40 tab PO HS 08/08/17 Losartan Potassium 100 mg PO HS 09/04/17 Aspirin [Aspirin EC] 81 mg PO HS 01/28/19 Pantoprazole Sodium 40 mg PO HS 01/28/19 Famotidine [Pepcid -] 40 mg PO DAILY 02/02/19 Cholecalciferol (Vitamin D3) [D3 Dots] 2,000 unit PO DAILY 02/04/19 Anemia: No Asthma: No Cancer: Yes (PROSTATE) Cardiac Disorders: No CVA: No COPD: No CHF: No DVT: Yes Dementia: No Diabetes: No GI Disorders: Yes (H/O COLONIC POLYPS) Disorders: Yes (PROSTATE CANCER) HTN: Yes Hypercholesterolemia: Yes Kidney Stones: Yes Liver Disease: Yes Seizures: No Thyroid Disease: No - Surgical History Abdominal Surgery: Yes Appendectomy: Yes Cardiac Surgery: No Cholecystectomy: No Lung Surgery: No Neurologic Surgery: No Orthopedic Surgery: Yes (LEFT KNEE SURGERY) - Immunization History Immunization Up to Date: No (ALLERGIC) - Psycho Social/Smoking Cessation Hx Smoking Status: No Smoking History: Never smoked Have you smoked in the past 12 months: No Number of Cigarettes Smoked Daily: 0 Hx Alcohol Use: No Drug/Substance Use Hx: No Substance Use Type: Alcohol Hx Substance Use Treatment: No Medical Decision Making - Medical Decision Making 02/06/19 08:37 Vital Signs Temp Pulse Resp BP Pulse Ox 98.4 F 73 20 128/82 96 02/06/19 08:21 02/06/19 08:21 02/06/19 08:21 02/06/19 08:21 02/06/19 08:21 firmVital signs are within normal limits, afebrile. Patient has been improving over the last 2 days, no additional antibiotics is warranted. The incision site is healing properly, no malodor, discharge, worsening redness or warmth or signs of developing infection. No abdominal tenderness and no systemic features. There is a firm area above the site of the incision so there could be a developing sebaceous cyst. Patient was instructed to follow- up with his primary doctor as well as hanging flags decorator for recheck and further management of the subcutaneous firmness that is been palpated. Discharged in stable condition, appropriate wound care instructions provided, return precautions also discussed including signs of worsening infection or systemic features. Patient and family verbalized understanding of the impression transfer tech instructions and plan Discharge - Discharge Information Problems reviewed: Yes Clinical Impression/Diagnosis: Encounter for wound re-check, Infected sebaceous cyst of skin Condition: Improved Disposition: HOME - Admission No - Follow up/Referral Referrals: Dante Shepherd MD [Staff Physician] - - Patient Discharge Instructions Patient Printed Discharge Instructions: DI for Incision and Drainage of a Skin Abscess Additional Instructions: Wound dressed with topical Bacitracin and sterile gauze. Follow up with your primary care doctor within 48-72 hours for a wound check you should see a hanging flags decorator, as there may be a developing sebaceous cyst adjacent to the infected one that was incised and drained.. Apply bacitracin or neosporin twice a day with warm soaks and cover with gauze/ dressings. Return to the ED for any worsening pain, redness, streaking (red lines), swelling, fever or chills, malodor, discharge. Keep the wound clean and as dry as possible. Do not immerse or soak the wound in water. This means no swimming, washing dishes (unless thick rubber gloves are used), baths, or hot tubs until the stitches are removed or after about two weeks if absorbable suture material was used. Leave original bandages on the wound for the first 24 hours. After this time, showering or rinsing is recommended, rather than bathing. the first day, remove old bandages and gently cleanse the wound with soap and water. Cleansing twice a day prevents buildup of debris and will result in better healing and wound infection prevention. - Post Discharge Activity
[2019-02-06 08:31] VITALS: BP 128/82; PULSE 73; TEMP 98.4; BMI 29.9
== END 2019-02-06 08:43 | disposition home or self-care (01) ==
LOC: FER 08:20
DX: Z48.01 Encounter for change or removal of surgical wound dressing (principal)
CPT/HCPCS: 99281-25

== ENCOUNTER 2019-04-16 12:58 | Emergency (ER) | payer OTHER, BC ==
[2019-04-16 13:19] VITALS: BP 117/75; PULSE 76; TEMP 98.3; BMI 29.9
[2019-04-16 13:44] LABS: BASO % 0.7 % (0-2.0); EOS % 1.5 % (0-4.5); HEMATOCRIT 44.5 % (35.4-49); MCH 31.8 pg (25.7-33.7); MCHC 33.7 g/dl (32.0-35.9); MEAN CELL VOLUME 94.4 fl (80-96); MEAN PLT VOLUME 8.8 fl (7.5-11.1); NEUT % 66.8 % (42.8-82.8); PLATELET COUNT 215 K/MM3 (134-434); RBC 4.71 M/mm3 (4.00-5.60); RDW 13.1 % (11.9-15.9); WHITE BLOOD COUNT 4.3 K/mm3 (4.0-10.8)
[2019-04-16 13:54] LABS: ALBUMIN 4.1 g/dl (3.4-5.0); BILIRUBIN,TOTAL 0.7 mg/dl (0.2-1); CALCIUM 8.6 mg/dl (8.5-10); CREATININE 1.4 mg/dl (0.55-1.3); POTASSIUM 4.4 mmol/L (3.5-5.1); TOT PROT 6.4 g/dl (6.4-8.2)
[2019-04-16] MEDS ORDERED: ACETAMINOPHEN INJECTION 100 ML IVPB ONE (15:04)
[2019-04-16] MEDS ORDERED: ACETAMINOPHEN 1000 MG/100 ML VIAL (NON FORMULARY) IVPB ONE (15:04)
--- NOTE | 2019-04-16 15:16 | PDOC ---
Documentation entered by Miguel Corea SCRIBE, acting as scribe for Lindsey Sanders MD. Lindsey Sanders MD: This documentation has been prepared by the Nahomy hardin Angel, SCRIBE, under my direction and personally reviewed by me in its entirety. I confirm that the documentation accurately reflects all work, treatment, procedures, and medical decision making performed by me. History of Present Illness - General Chief Complaint: Chest Pain Stated Complaint: RIB PAIN Time Seen by Provider: 04/16/19 13:00 History Source: Patient Exam Limitations: No Limitations - History of Present Illness Initial Comments: 04/16/19 15:17 The patient is a 73 year old male with a significant past medical history of PE (on eliquis), HTN, and HLD who presents to the ED with 2 days of right sided mildly pleuritic chest pain. The patient states the chest pain is not dissimilar to previous PE. The patient states he is compliant with eliquis, took as ordered yesterday and today. Denies SOB or cough. Denies leg complaints. Denies nausea or vomiting. Past History - Past Medical History Allergies/Adverse Reactions: Allergies Allergy/AdvReac Type Severity Reaction Status Date / Time tetanus immune globulin Allergy Severe Tongue and Verified 04/16/19 13:11 throat swelling enoxaparin sodium Allergy Verified 04/16/19 13:11 [From Lovenox] sulfamethoxazole Allergy Rash on Verified 04/16/19 13:11 [From Bactrim] palm of hand tetracycline [Tetracycline] Allergy OPEN SORES Verified 04/16/19 13:11 trimethoprim [From Bactrim] Allergy Rash on Verified 04/16/19 13:11 palm of hand Penicillins AdvReac Severe dizzy Verified 04/16/19 13:11 TOMATO Allergy Intermediate Tongue and Uncoded 04/16/19 13:11 throat swelling Home Medications: Ambulatory Orders Rosuvastatin [Crestor -] 40 tab PO HS 08/08/17 Losartan Potassium 100 mg PO HS 09/04/17 Aspirin [Aspirin EC] 81 mg PO Q48H 01/28/19 Pantoprazole Sodium 40 mg PO HS 01/28/19 Famotidine [Pepcid -] 40 mg PO DAILY 02/02/19 Cholecalciferol (Vitamin D3) [D3 Dots] 2,000 unit PO DAILY 02/04/19 Lidocaine [Aspercreme] 1 each TP ONCE 04/16/19 Tramadol HCl 50 mg PO DAILY PRN 04/16/19 Anemia: No Asthma: No Cancer: Yes (PROSTATE) Cardiac Disorders: No CVA: No COPD: No CHF: No DVT: Yes Dementia: No Diabetes: No GI Disorders: Yes (H/O COLONIC POLYPS) Disorders: Yes (PROSTATE CANCER) HTN: Yes Hypercholesterolemia: Yes Kidney Stones: Yes Liver Disease: Yes Seizures: No Thyroid Disease: No - Surgical History Abdominal Surgery: Yes Appendectomy: Yes Cardiac Surgery: No Cholecystectomy: No Lung Surgery: No Neurologic Surgery: No Orthopedic Surgery: Yes (LEFT KNEE SURGERY) - Immunization History Immunization Up to Date: No (ALLERGIC) - Psycho Social/Smoking Cessation Hx Smoking Status: No Smoking History: Never smoked Have you smoked in the past 12 months: No Number of Cigarettes Smoked Daily: 0 Hx Alcohol Use: No Drug/Substance Use Hx: No Substance Use Type: Alcohol Hx Substance Use Treatment: No Review of Systems - Review of Systems Able to Perform ROS?: Yes Comments:: 04/16/19 15:18 GENERAL/CONSTITUTIONAL: No fever or chills. No weakness. HEAD, EYES, EARS, NOSE AND THROAT: No change in vision. No ear pain or discharge. No sore throat. CARDIOVASCULAR: + Chest pain. No shortness of breath. RESPIRATORY: No cough, wheezing, or hemoptysis. GASTROINTESTINAL: No nausea, vomiting, diarrhea or constipation. GENITOURINARY: No dysuria, frequency, or change in urination. MUSCULOSKELETAL: No joint or muscle swelling or pain. No neck or back pain. SKIN: No rash NEUROLOGIC: No headache, vertigo, loss of consciousness, or change in strength/ sensation. ENDOCRINE: No increased thirst. No abnormal weight change. HEMATOLOGIC/LYMPHATIC: No anemia, easy bleeding, or history of blood clots. ALLERGIC/IMMUNOLOGIC: No hives or skin allergy. *Physical Exam - Vital Signs Last Vital Signs Temp Pulse Resp BP Pulse Ox 98.3 F 76 15 117/75 99 04/16/19 12:59 04/16/19 12:59 04/16/19 12:59 04/16/19 12:59 04/16/19 12:59 - Physical Exam 04/16/19 15:18 GENERAL: Awake, alert, and fully oriented, in no acute distress HEAD: No signs of trauma EYES: PERRLA, EOMI, sclera anicteric, conjunctiva clear ENT: Auricles normal inspection, hearing grossly normal, nares patent, oropharynx clear without exudates. Moist mucosa NECK: Normal ROM, supple, no lymphadenopathy, JVD, or masses LUNGS: Breath sounds equal, clear to auscultation bilaterally. No wheezes, and no crackles HEART: Regular rate and rhythm, normal S1 and S2, no murmurs, rubs or gallops ABDOMEN: Soft, nontender, normoactive bowel sounds. No guarding, no rebound. No masses EXTREMITIES: Normal range of motion, no edema. No clubbing or cyanosis. No cords, erythema, or tenderness NEUROLOGICAL: Cranial nerves II through XII grossly intact. Normal speech, normal gait SKIN: Warm, Dry, normal turgor, no rashes or lesions noted. ED Treatment Course - LABORATORY CBC & Chemistry Diagram: 04/16/19 13:25 04/16/19 13:25 - ADDITIONAL ORDERS Additional order review: Laboratory Results 04/16/19 04/16/19 13:25 13:25 Sodium 136 Potassium 4.4 Chloride 107 Carbon Dioxide 26 Anion Gap 3 L BUN 27.0 H Creatinine 1.4 H Est GFR (CKD-EPI)AfAm 56.96 Est GFR (CKD-EPI)NonAf 49.14 Random Glucose 102 Calcium 8.6 Total Bilirubin 0.7 AST 23 ALT 19 Alkaline Phosphatase 49 Creatine Kinase 123 Troponin I < 0.03 Total Protein 6.4 Albumin 4.1 04/16/19 13:25 RBC 4.71 MCV 94.4 MCHC 33.7 RDW 13.1 MPV 8.8 Neutrophils % 66.8 Lymphocytes % 23.0 D Monocytes % 8.0 Eosinophils % 1.5 D Basophils % 0.7 - RADIOLOGY Radiology Studies Ordered: Category Date Time Status CHEST PA & LAT [RAD] Stat Radiology 04/16/19 13:21 Completed Medical Decision Making - Medical Decision Making 04/16/19 14:37 pt presents to the ED complaining of chest wall pain. History of PE in the past , but patient has been consistently taking eliquis and is low risk for future PEs. Differential included muscular pain, less likely PE, less likely ACS. Labs show no evidence of ACS. D dimer is negative. Given that the patient has been consistently taking eliquis and d dimer is negative, will discharge patient home. Patient instructed to return immediately to the ED for worsening symptoms. 04/16/19 15:14 Discharge - Discharge Information Problems reviewed: Yes Clinical Impression/Diagnosis: Chest wall pain Condition: Good Disposition: HOME - Admission No - Follow up/Referral Referrals: Dante Shepherd MD [Primary Care Provider] - - Patient Discharge Instructions Patient Printed Discharge Instructions: DI for Chest Pain Additional Instructions: you came to the Ed for chest pain. We did blood work, an EKG and a chest xray, all of which were ok. You should return to the ED for new or worsening symptoms , including chest pain or shortness of breath, passing out or fevers. Make sure that you follow up with your doctor on Thursday. Make sure that you continue to take your eliquis. - Post Discharge Activity
--- NOTE | 2019-04-17 14:20 | EKG ---
Test Reason : Blood Pressure : / mmHG Vent. Rate : 074 BPM Atrial Rate : 074 BPM P-R Int : 198 ms QRS Dur : 096 ms QT Int : 378 ms P-R-T Axes : 019 001 013 degrees QTc Int : 419 ms NORMAL SINUS RHYTHM NORMAL ECG Confirmed by MD VIRGIN[place], RACHEL ([id number]) on 04/17/2019 2:20:26 PM Referred By: AILYN LARIOS Confirmed By:RACHEL COLEMAN MD
== END 2019-04-16 15:27 | disposition home or self-care (01) ==
LOC: FER 12:58
PROC: 3E033NZ Introduction of Analgesics, Hypnotics, Sedatives into Peripheral Vein, Percutaneous Approach (ICD-10-PCS; principal; 2019-04-16)
DX: R07.89 Other chest pain (principal); Z88.8 Allergy status to other drugs, medicaments and biological substances; Z86.711 Personal history of pulmonary embolism; Z79.01 Long term (current) use of anticoagulants; I10 Essential (primary) hypertension; E78.00 Pure hypercholesterolemia, unspecified; N20.0 Calculus of kidney; K92.9 Disease of digestive system, unspecified; Z85.46 Personal history of malignant neoplasm of prostate; Z86.718 Personal history of other venous thrombosis and embolism
CPT/HCPCS: 36415; 71046-TC-FY; 80053; 82550; 84484; 85025; 85379; 93005; 99283-25; J0131

== ENCOUNTER 2019-04-21 09:18 | Emergency (ER) | payer OTHER, BC ==
--- NOTE | 2019-04-21 09:22 | PDOC ---
History of Present Illness <Meenu Lamb - Last Filed: 04/21/19 09:22> <Juan Francisco Jack - Last Filed: 04/21/19 10:18> - General Chief Complaint: Pain Stated Complaint: pain Time Seen by Provider: 04/21/19 09:22 Past History - Past Medical History Anemia: No Asthma: No Cancer: Yes (PROSTATE) Cardiac Disorders: No CVA: No COPD: No CHF: No DVT: Yes Dementia: No Diabetes: No GI Disorders: Yes (H/O COLONIC POLYPS) Disorders: Yes (PROSTATE CANCER) HTN: Yes Hypercholesterolemia: Yes Kidney Stones: Yes Liver Disease: Yes Seizures: No Thyroid Disease: No - Surgical History Abdominal Surgery: Yes Appendectomy: Yes Cardiac Surgery: No Cholecystectomy: No Lung Surgery: No Neurologic Surgery: No Orthopedic Surgery: Yes (LEFT KNEE SURGERY) - Immunization History Immunization Up to Date: No (ALLERGIC) - Psycho Social/Smoking Cessation Hx Smoking Status: No Smoking History: Never smoked Have you smoked in the past 12 months: No Number of Cigarettes Smoked Daily: 0 Hx Alcohol Use: No Drug/Substance Use Hx: No Substance Use Type: Alcohol Hx Substance Use Treatment: No <Meenu Lamb - Last Filed: 04/21/19 09:22> <Juan Francisco Jack - Last Filed: 04/21/19 10:18> - Past Medical History Allergies/Adverse Reactions: Allergies Allergy/AdvReac Type Severity Reaction Status Date / Time tetanus immune globulin Allergy Severe Tongue and Verified 04/16/19 13:11 throat swelling enoxaparin sodium Allergy Verified 04/16/19 13:11 [From Lovenox] sulfamethoxazole Allergy Rash on Verified 04/16/19 13:11 [From Bactrim] palm of hand tetracycline [Tetracycline] Allergy OPEN SORES Verified 04/16/19 13:11 trimethoprim [From Bactrim] Allergy Rash on Verified 04/16/19 13:11 palm of hand Penicillins AdvReac Severe dizzy Verified 04/16/19 13:11 TOMATO Allergy Intermediate Tongue and Uncoded 04/16/19 13:11 throat swelling Home Medications: Ambulatory Orders Rosuvastatin [Crestor -] 40 tab PO HS 08/08/17 Losartan Potassium 100 mg PO HS 09/04/17 Aspirin [Aspirin EC] 81 mg PO Q48H 01/28/19 Pantoprazole Sodium 40 mg PO HS 01/28/19 Famotidine [Pepcid -] 40 mg PO DAILY 02/02/19 Cholecalciferol (Vitamin D3) [D3 Dots] 2,000 unit PO DAILY 02/04/19 Lidocaine [Aspercreme Lidocaine] 1 each TP ONCE 04/16/19 Tramadol HCl 50 mg PO DAILY PRN 04/16/19 Oxycodone HCl/Acetaminophen [Percocet 5-325 mg Tablet] 1 - 2 tab PO Q6H PRN #20 tab MDD 6 04/21/19 Valacyclovir HCl [Valtrex] 1,000 mg PO TID #21 tablet 04/21/19 predniSONE [Deltasone -] 30 mg PO DAILY #60 tablet 04/21/19 *Physical Exam - Vital Signs Last Vital Signs Temp Pulse Resp BP Pulse Ox 97.7 F 94 H 20 130/83 97 04/21/19 09:19 04/21/19 09:19 04/21/19 09:19 04/21/19 09:19 04/21/19 09:19 <Juan Francisco Jack - Last Filed: 04/21/19 10:18> Discharge <Elizabeth LambMeenu - Last Filed: 04/21/19 09:22> - Discharge Information Problems reviewed: Yes - Admission No <Juan Francisco Jack - Last Filed: 04/21/19 10:18> - Discharge Information Clinical Impression/Diagnosis: Herpes zoster Qualifiers: Herpes zoster complications: without complications Qualified Code(s): B02.9 - Zoster without complications Condition: Stable Disposition: HOME - Additional Discharge Information Prescriptions: Oxycodone HCl/Acetaminophen [Percocet 5-325 mg Tablet] 1 - 2 tab PO Q6H PRN #20 tab MDD 6 PRN Reason: Severe Pain predniSONE [Deltasone -] 30 mg PO DAILY #60 tablet Valacyclovir HCl [Valtrex] 1,000 mg PO TID #21 tablet - Patient Discharge Instructions Patient Printed Discharge Instructions: DI for Shingles Additional Instructions: Keep the area clean and dry. Apply antibiotic ointment and keep covered. Medication as directed. See Dr. Shepherd for follow-up until rash is cleared and pain resolved.
--- NOTE | 2019-04-21 09:30 | PDOC ---
Attending Attestation - Resident Resident Name: Meenu Lamb - ED Attending Attestation I have performed the following: I have examined & evaluated the patient, The case was reviewed & discussed with the resident, I agree w/resident's findings & plan, Exceptions are as noted
[2019-04-21 09:48] VITALS: BP 130/83; PULSE 94; TEMP 97.7; BMI 29.9
--- NOTE | 2019-04-21 10:49 | PDOC ---
History of Present Illness - General Chief Complaint: Pain Stated Complaint: pain Time Seen by Provider: 04/21/19 09:22 - History of Present Illness Initial Comments: 04/21/19 10:44 Chief complaint: Right mid chest pain and rash HPI: Patient has been treated for musculoskeletal right-sided chest pain for 1 week. Yesterday began to develop a rash characteristic for varicella-zoster on the right posterior chest radiating along the dermatome to the right lateral and anterior chest wall. Recurrent PE was ruled out with a negative d-dimer on his last ER visit. 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 Review of systems: No fever/chills, shortness of breath, abdominal pain, nausea , vomiting, diarrhea, diaphoresis, visual or focal neurologic symptoms, unsteadiness of gait. Remainder of systems reviewed and negative Past medical history: High blood pressure, pulmonary embolus as noted above. Social/family history noncontributory Physical exam: Alert and oriented well-developed well-nourished no acute distress cheerful and cooperative Afebrile, vital signs normal HEENT clear Neck supple without bruit mass or nodes Lungs clear with full breath sounds bilaterally, no wheezes rales or rhonchi. No dullness to percussion Examination of the chest wall reveals grouped vesicles on an erythematous base along the dermatomal distribution, right chest. Suggestive of varicella-zoster CV regular without murmur rub or gallop Abdomen benign Skin rashes noted. Otherwise adequate turgor and wet against membranes Neurological C2 to 12 intact. Strength full and symmetric. No focal sensorimotor deficits. Gait stable and unimpaired Impression: Varicella-zoster Plan: Antivirals, analgesics, and prednisone. Patient will follow-up with primary physician Dr. Shepherd, regularly scheduled visit later today, for monitoring and further treatment. Fully ambulatory and in no significant pain or other distress at discharge with to follow-up as directed Past History - Past Medical History Allergies/Adverse Reactions: Allergies Allergy/AdvReac Type Severity Reaction Status Date / Time tetanus immune globulin Allergy Severe Tongue and Verified 04/16/19 13:11 throat swelling enoxaparin sodium Allergy Verified 04/16/19 13:11 [From Lovenox] sulfamethoxazole Allergy Rash on Verified 04/16/19 13:11 [From Bactrim] palm of hand tetracycline [Tetracycline] Allergy OPEN SORES Verified 04/16/19 13:11 trimethoprim [From Bactrim] Allergy Rash on Verified 04/16/19 13:11 palm of hand Penicillins AdvReac Severe dizzy Verified 04/16/19 13:11 TOMATO Allergy Intermediate Tongue and Uncoded 04/16/19 13:11 throat swelling Home Medications: Ambulatory Orders Rosuvastatin [Crestor -] 40 tab PO HS 08/08/17 Losartan Potassium 100 mg PO HS 09/04/17 Aspirin [Aspirin EC] 81 mg PO Q48H 01/28/19 Pantoprazole Sodium 40 mg PO HS 01/28/19 Famotidine [Pepcid -] 40 mg PO DAILY 02/02/19 Cholecalciferol (Vitamin D3) [D3 Dots] 2,000 unit PO DAILY 02/04/19 Lidocaine [Aspercreme Lidocaine] 1 each TP ONCE 04/16/19 Tramadol HCl 50 mg PO DAILY PRN 04/16/19 Oxycodone HCl/Acetaminophen [Percocet 5-325 mg Tablet] 1 - 2 tab PO Q6H PRN #20 tab MDD 6 04/21/19 Valacyclovir HCl [Valtrex] 1,000 mg PO TID #21 tablet 04/21/19 predniSONE [Deltasone -] 30 mg PO DAILY #60 tablet 04/21/19 Anemia: No Asthma: No Cancer: Yes (PROSTATE) Cardiac Disorders: No CVA: No COPD: No CHF: No DVT: Yes Dementia: No Diabetes: No GI Disorders: Yes (H/O COLONIC POLYPS) Disorders: Yes (PROSTATE CANCER) HTN: Yes Hypercholesterolemia: Yes Kidney Stones: Yes Liver Disease: Yes Seizures: No Thyroid Disease: No - Surgical History Abdominal Surgery: Yes Appendectomy: Yes Cardiac Surgery: No Cholecystectomy: No Lung Surgery: No Neurologic Surgery: No Orthopedic Surgery: Yes (LEFT KNEE SURGERY) - Immunization History Immunization Up to Date: No (ALLERGIC) - Psycho Social/Smoking Cessation Hx Smoking Status: No Smoking History: Never smoked Have you smoked in the past 12 months: No Number of Cigarettes Smoked Daily: 0 Information on smoking cessation initiated: No Hx Alcohol Use: No Drug/Substance Use Hx: No Substance Use Type: Alcohol Hx Substance Use Treatment: No *Physical Exam - Vital Signs Last Vital Signs Temp Pulse Resp BP Pulse Ox 97.7 F 94 H 20 130/83 97 04/21/19 09:19 04/21/19 09:19 04/21/19 09:19 04/21/19 09:19 04/21/19 09:19 Discharge - Discharge Information Problems reviewed: Yes Clinical Impression/Diagnosis: Herpes zoster Qualifiers: Herpes zoster complications: without complications Qualified Code(s): B02.9 - Zoster without complications Condition: Stable Disposition: HOME - Admission No - Additional Discharge Information Prescriptions: Oxycodone HCl/Acetaminophen [Percocet 5-325 mg Tablet] 1 - 2 tab PO Q6H PRN #20 tab MDD 6 PRN Reason: Severe Pain predniSONE [Deltasone -] 30 mg PO DAILY #60 tablet Valacyclovir HCl [Valtrex] 1,000 mg PO TID #21 tablet - Follow up/Referral - Patient Discharge Instructions Patient Printed Discharge Instructions: DI for Shingles Additional Instructions: Keep the area clean and dry. Apply antibiotic ointment and keep covered. Medication as directed. See Dr. Shepherd for follow-up until rash is cleared and pain resolved. - Post Discharge Activity
== END 2019-04-21 10:29 | disposition home or self-care (01) ==
LOC: FER 09:18
DX: B02.9 Zoster without complications (principal); I10 Essential (primary) hypertension; Z86.711 Personal history of pulmonary embolism; Z86.718 Personal history of other venous thrombosis and embolism; Z79.01 Long term (current) use of anticoagulants; Z85.46 Personal history of malignant neoplasm of prostate
CPT/HCPCS: 99283-25

== ENCOUNTER 2020-12-09 21:59 | Emergency (ER) | payer OTHER, BC ==
[2020-12-09 22:16] VITALS: BMI 29.2
[2020-12-09] MEDS ORDERED: SODIUM CHLORIDE 1,000 ML IV STA (22:27)
[2020-12-09] MEDS ORDERED: ACETAMINOPHEN 1000 MG/100 ML VIAL (NON FORMULARY) IVPB ONE (22:27)
[2020-12-09] MEDS ORDERED: ACETAMINOPHEN INJECTION 100 ML IVPB ONE (22:50)
[2020-12-09 23:04] LABS: HEMATOCRIT 44.5 % (35.4-49); HEMOGLOBIN 15.4 GM/dl (11.7-16.9); MCH 31.8 pg (25.7-33.7); MCHC 34.6 g/dl (32.0-35.9); MEAN CELL VOLUME 91.9 fl (80-96); MEAN PLT VOLUME 8.5 fl (7.5-11.1); PLATELET COUNT 245 10^3/uL (134-434); RBC 4.84 M/mm3 (4.00-5.60); RDW 12.9 % (11.9-15.9)
[2020-12-09 23:22] LABS: ALBUMIN 4.3 g/dl (3.4-5.0); BILIRUBIN,TOTAL 0.5 mg/dl (0.2-1); CREATININE 1.7 mg/dl (0.55-1.3); TOT PROT 6.9 g/dl (6.4-8.2)
[2020-12-09 23:27] LABS: EPITHELIAL CELLS RARE /hpf
[2020-12-09 23:37] LABS: PLATELET ESTIMATE ADEQUATE
[2020-12-09 23:54] VITALS: BP 130/79; TEMP 99.8
[2020-12-10 00:05] VITALS: PULSE 90
== END 2020-12-10 00:19 | disposition home or self-care (01) ==
LOC: FER 21:59
PROC: 3E033GC Introduction of Other Therapeutic Substance into Peripheral Vein, Percutaneous Approach (ICD-10-PCS; principal; 2020-12-09)
DX: R50.9 Fever, unspecified (principal)
CPT/HCPCS: 36415; 71045-TC-FY; 80053; 81003; 81015; 85025; 87040; 87086; 87804; 96361; 96374; 99284-25; C9803; J0131; U0003; U0005

== ENCOUNTER 2021-06-19 18:21 | Emergency (ER) | payer OTHER, BC ==
[2021-06-19 18:35] VITALS: BP 131/81; PULSE 101; TEMP 99.6; BMI 29.9
[2021-06-19] MEDS ORDERED: DEXAMETHASONE SOD PHOSPHATE 10 MG/1 ML VIAL IVPUSH ONE (18:35)
[2021-06-19] MEDS ORDERED: KETOROLAC TROMETHAMINE 60 MG/2 ML VIAL IM ONE (18:35)
[2021-06-19] MEDS ORDERED: KETOROLAC TROMETHAMINE 60 MG/2 ML VIAL ONE (18:47)
[2021-06-19] MEDS ORDERED: DEXAMETHASONE SOD PHOSPHATE 10 MG/1 ML VIAL ONE (18:48)
[2021-06-19] MEDS ORDERED: DEXAMETHASONE 4 MG TABLET (FP) ONE ×2 (18:49→18:53)
[2021-06-19] MEDS ORDERED: DEXAMETHASONE SOD PHOSPHATE 10 MG/1 ML VIAL PO ONE (18:49)
[2021-06-20 13:08] LABS: SARS-CoV-2 NAA Detected (Not Detected)
== END 2021-06-19 22:06 | disposition home or self-care (01) ==
LOC: FER 18:21
PROC: 3E023GC Introduction of Other Therapeutic Substance into Muscle, Percutaneous Approach (ICD-10-PCS; principal; 2021-06-19)
DX: J02.9 Acute pharyngitis, unspecified (principal); J06.9 Acute upper respiratory infection, unspecified
CPT/HCPCS: 70360-TC-FY; 71046-TC-FY; 87651; 87804; 87807; 99284-25; C9803-CS; J1100; U0003; U0005

== ENCOUNTER 2021-06-22 09:14 | Emergency (ER) | payer OTHER, BC ==
[2021-06-22] MEDS ORDERED: BEBTELOVIMAB (EUA) 175 MG/2 ML VIAL IVPUSH ONE (09:16)
[2021-06-22 09:32] VITALS: TEMP 97.8; BMI 29.9
[2021-06-22 11:27] VITALS: BP 133/85; PULSE 69
== END 2021-06-22 11:59 | disposition home or self-care (01) ==
LOC: JER 09:14
DX: U07.1 COVID-19 (principal)
CPT/HCPCS: 99284-25; M0222; Q0222

== ENCOUNTER 2021-07-09 06:16 | Emergency (ER) | payer OTHER, BC ==
[2021-07-09 06:28] VITALS: BP 134/78; PULSE 104; TEMP 98.3; BMI 29.9
[2021-07-09] MEDS ORDERED: CIPROFLOXACIN 500 MG TABLET (RESTRICTED TO ID) PO ONE (06:42)
[2021-07-09] MEDS ORDERED: CIPROFLOXACIN 250 MG TABLET (RESTRICTED TO ID) PO ONE (06:43)
[2021-07-09 07:40] LABS: EPITHELIAL CELLS RARE /hpf
== END 2021-07-09 06:50 | disposition home or self-care (01) ==
LOC: FER 06:16
DX: R31.0 Gross hematuria (principal)
CPT/HCPCS: 81003; 81015; 87086; 99283-25

== ENCOUNTER 2021-07-20 14:29 | Emergency (ER) | payer OTHER, BC ==
[2021-07-20 14:57] VITALS: BMI 29.9
[2021-07-20] MEDS ORDERED: SODIUM CHLORIDE 3,266 ML IV ONE (15:08)
[2021-07-20] MEDS ORDERED: CEFTRIAXONE 1,000 MG in DEXTROSE 5%-WATER - 50 ML IVPB ONE (15:09)
[2021-07-20] MEDS ORDERED: ACETAMINOPHEN 1000 MG/100 ML BAG IVPB ONE (15:09)
[2021-07-20] MEDS ORDERED: ACETAMINOPHEN INJECTION 100 ML IVPB ONE (16:15)
[2021-07-20] MEDS ORDERED: cefTRIAXone SODIUM 1 GM VIAL ONE (16:15)
[2021-07-20 16:34] LABS: HEMATOCRIT 47.5 % (35.4-49); HEMOGLOBIN 16.4 G/dL (11.7-16.9); MCH 31.4 pg (25.7-33.7); MCHC 34.6 g/dl (32.0-35.9); MEAN CELL VOLUME 90.9 fl (80-96); MEAN PLT VOLUME 8.1 fl (7.5-11.1); PLATELET COUNT 198.1 10^3/uL (134-434); RBC 5.23 10^6/uL (4.00-5.60); RDW 14.7 % (11.9-15.9); WHITE BLOOD COUNT 6.4 10^3/uL (4.0-10.8)
[2021-07-20 16:44] LABS: ALBUMIN 4.1 g/dl (3.4-5.0); BILIRUBIN,TOTAL 0.9 mg/dl (0.2-1); CALCIUM 9.3 mg/dl (8.5-10); CREATININE 1.8 mg/dl (0.55-1.3); TOT PROT 6.5 g/dl (6.4-8.2)
[2021-07-20 16:50] LABS: INR 1.63 (0.83-1.09); PROTHROMBIN TIME (PATIENT) 18.8 SEC (9.7-13.0)
[2021-07-20 16:53] LABS: ACTIVATED PTT 37.2 SECONDS (25.2-36.5)
[2021-07-20 17:01] VITALS: PULSE 104
[2021-07-20 17:08] LABS: VENOUS BASE EXCESS -1.8 mmol/L (-2-2); VENOUS O2 SATURATION 76.7 % (70-80); VENOUS PCO2 34.9 mmHg (38-52); VENOUS PH 7.416 (7.310-7.410)
[2021-07-20 17:25] LABS: EPITHELIAL CELLS RARE /hpf
[2021-07-20 18:47] VITALS: BP 102/72; TEMP 99.7
== END 2021-07-20 19:04 | disposition home or self-care (01) ==
LOC: FER 14:29 → SUPCPDRO 14:29 → FER 19:04
PROC: 3E0333Z Introduction of Anti-inflammatory into Peripheral Vein, Percutaneous Approach (ICD-10-PCS; principal; 2021-07-20)
PROC: 3E03329 Introduction of Other Anti-infective into Peripheral Vein, Percutaneous Approach (ICD-10-PCS; 2021-07-20)
PROC: 3E0337Z Introduction of Electrolytic and Water Balance Substance into Peripheral Vein, Percutaneous Approach (ICD-10-PCS; 2021-07-20)
DX: R50.9 Fever, unspecified (principal)
CPT/HCPCS: 0241U-QW; 36415; 71046-TC-FY; 80053; 81003; 81015; 82550; 82803; 83605; 85025; 85610; 85730; 86850; 86900; 86901; 87040; 87086; 93005; 96361; 96374; 96375; 99285-25

== ENCOUNTER 2021-11-14 09:34 | Emergency (ER) | payer OTHER, BC ==
[2021-11-14 09:45] VITALS: BP 142/85; PULSE 94; RESP 18; TEMP 98.4; BMI 29.3
== END 2021-11-14 13:15 | disposition home or self-care (01) ==
LOC: FER 09:34
DX: M79.661 Pain in right lower leg (principal)
CPT/HCPCS: 93971-TC; 99284-25

== ENCOUNTER 2022-04-29 11:20 | Observation (INO) | payer OTHER, BC ==
[2022-04-29 12:18] LABS: HEMATOCRIT 48.8 % (35.4-49); HEMOGLOBIN 16.6 G/dL (11.7-16.9); MCH 31.4 pg (25.7-33.7); MEAN CELL VOLUME 92.4 fl (80-96); MEAN PLT VOLUME 7.8 fl (7.5-11.1); PLATELET COUNT 233.4 10^3/uL (134-434); RBC 5.28 10^6/uL (4.00-5.60); WHITE BLOOD COUNT 8.9 10^3/uL (4.0-10.8)
[2022-04-29 12:25] LABS: ALBUMIN 3.9 g/dl (3.4-5.0); BILIRUBIN,TOTAL 1.1 mg/dl (0.2-1); CALCIUM 9.1 mg/dl (8.5-10); CREATININE 2.1 mg/dl (0.55-1.3); TOT PROT 6.9 g/dl (6.4-8.2)
[2022-04-29 12:54] LABS: PLATELET ESTIMATE ADEQUATE
[2022-04-29 13:28] LABS: EPITHELIAL CELLS RARE /hpf
[2022-04-29 17:54] VITALS: RESP 18; BMI 29.8
[2022-04-29] MEDS: SODIUM CHLORIDE 1,000 ML IV SCH (18:31)
[2022-04-29] MEDS: APIXABAN 5 MG TABLET PO SCH (21:42)
[2022-04-29] MEDS: ROSUVASTATIN CA 40 MG TABLET PO SCH (21:42)
[2022-04-29] MEDS: FLUTICASONE PROP 0.05% 16 GM NASAL SPRAY NS SCH (21:43)
[2022-04-29] MEDS: CHOLECALCIFEROL (VIT D3) 1,000 UNIT (25 MCG) TABLET PO SCH (21:43)
[2022-04-30 08:27] LABS: ALBUMIN 3.2 g/dl (3.4-5.0); BILIRUBIN,TOTAL 0.8 mg/dl (0.2-1); CALCIUM 8.8 mg/dl (8.5-10); CREATININE 1.8 mg/dl (0.55-1.3); MAGNESIUM 2.1 mg/dL (1.8-2.4); PHOSPHOROUS 3.4 mg/dl (2.5-4.9); TOT PROT 5.8 g/dl (6.4-8.2)
[2022-04-30] MEDS: POLYETHYLENE GLYCOL (HEALTHYLAX) 3350 17 GM PACKET PO SCH ×2 (09:58→21:26)
[2022-04-30] MEDS: APIXABAN 5 MG TABLET PO SCH ×2 (09:58→21:27)
[2022-04-30] MEDS: LACTOBACILLUS ACIDOPHILUS 1 TABLET PO SCH (09:58)
[2022-04-30] MEDS: FLUTICASONE PROP 0.05% 16 GM NASAL SPRAY NS SCH ×2 (09:59→21:28)
[2022-04-30 10:04] LABS: BASO % 0.4 % (0-2.0); EOS % 1.6 % (0-4.5); HEMATOCRIT 41.5 % (35.4-49); HEMOGLOBIN 14.1 GM/dL (11.7-16.9); LYMPH % 16.8 % (8-40); MCH 31.3 pg (25.7-33.7); MCHC 33.9 g/dl (32.0-35.9); MEAN CELL VOLUME 92.3 fl (80-96); MEAN PLT VOLUME 8.3 fl (7.5-11.1); NEUT % 69.2 % (42.8-82.8); PLATELET COUNT 233 10^3/uL (134-434); RDW 13.8 % (11.9-15.9); WHITE BLOOD COUNT 6.3 K/mm3 (4.0-10.0)
[2022-04-30] MEDS: SODIUM CHLORIDE 1,000 ML IV SCH (18:43)
[2022-04-30] MEDS: CHOLECALCIFEROL (VIT D3) 1,000 UNIT (25 MCG) TABLET PO SCH (21:27)
[2022-04-30] MEDS: ROSUVASTATIN CA 40 MG TABLET PO SCH (21:27)
[2022-04-30] MEDS ORDERED: LOSARTAN POTASSIUM 50 MG TABLET PO SCH (22:00)
[2022-05-01 06:31] VITALS: PULSE 78; TEMP 98.2
[2022-05-01 08:42] LABS: CALCIUM 8.6 mg/dl (8.5-10); CREATININE 1.7 mg/dl (0.55-1.3)
[2022-05-01 08:56] VITALS: BP 123/64
[2022-05-01 09:34] LABS: BASO % 0.6 % (0-2.0); EOS % 2.3 % (0-4.5); HEMATOCRIT 40.5 % (35.4-49); HEMOGLOBIN 13.6 GM/dL (11.7-16.9); LYMPH % 21.9 % (8-40); MCH 30.9 pg (25.7-33.7); MCHC 33.6 g/dl (32.0-35.9); MEAN CELL VOLUME 92.1 fl (80-96); MEAN PLT VOLUME 8.4 fl (7.5-11.1); MONO % 10.7 % (3.8-10.2); NEUT % 64.5 % (42.8-82.8); PLATELET COUNT 240 10^3/uL (134-434); RBC 4.39 M/mm3 (4.00-5.60); RDW 13.9 % (11.9-15.9); WHITE BLOOD COUNT 5.4 K/mm3 (4.0-10.0)
[2022-05-01] MEDS: APIXABAN 5 MG TABLET PO SCH (09:53)
[2022-05-01] MEDS: LACTOBACILLUS ACIDOPHILUS 1 TABLET PO SCH (09:53)
[2022-05-01] MEDS: POLYETHYLENE GLYCOL (HEALTHYLAX) 3350 17 GM PACKET PO SCH (10:00)
[2022-05-01] MEDS: FLUTICASONE PROP 0.05% 16 GM NASAL SPRAY NS SCH (10:00)
[2022-05-01] MEDS ORDERED: ASPIRIN 81 MG CHEWABLE TABLETS PO SCH (10:00)
== END 2022-05-01 10:30 | disposition home or self-care (01) ==
LOC: FER 11:20 → FM/S 14:24 → INTOOBSV 14:24
PROVIDERS: ADMIT Internal Medicine; ATTEND Internal Medicine
PROC: 3E03329 Introduction of Other Anti-infective into Peripheral Vein, Percutaneous Approach (ICD-10-PCS; principal; 2022-04-29)
PROC: 3E0337Z Introduction of Electrolytic and Water Balance Substance into Peripheral Vein, Percutaneous Approach (ICD-10-PCS; 2022-04-29)
DX: K52.89 Other specified noninfective gastroenteritis and colitis (principal); N18.2 Chronic kidney disease, stage 2 (mild); I12.9 Hypertensive chronic kidney disease with stage 1 through stage 4 chronic kidney disease, or unspecified chronic kidney disease; E78.5 Hyperlipidemia, unspecified; K21.9 Gastro-esophageal reflux disease without esophagitis; Z85.46 Personal history of malignant neoplasm of prostate; Z88.0 Allergy status to penicillin; Z88.1 Allergy status to other antibiotic agents; Z88.2 Allergy status to sulfonamides; Z88.7 Allergy status to serum and vaccine; Z86.711 Personal history of pulmonary embolism; Z86.718 Personal history of other venous thrombosis and embolism; Z90.79 Acquired absence of other genital organ(s); Z79.01 Long term (current) use of anticoagulants
CPT/HCPCS: 36415; 74176-TC; 80048; 80053; 81003; 81015; 83690; 83735; 84100; 85025; 85027; 93005; 96374; 96375; 99285-25; C9803-CS; G0378; U0003; U0005

== ENCOUNTER 2022-05-10 15:55 | Inpatient (IN) | payer OTHER, BC ==
[2022-05-10 18:01] LABS: HEMATOCRIT 43.6 % (35.4-49); HEMOGLOBIN 15.3 G/dL (11.7-16.9); MCH 32.2 pg (25.7-33.7); MEAN CELL VOLUME 91.7 fl (80-96); MEAN PLT VOLUME 7.5 fl (7.5-11.1); PLATELET COUNT 303.9 10^3/uL (134-434); RBC 4.75 10^6/uL (4.00-5.60); RDW 14.2 % (11.9-15.9); WHITE BLOOD COUNT 8.8 10^3/uL (4.0-10.8)
[2022-05-10 18:06] LABS: INR 1.33 (0.83-1.09); PROTHROMBIN TIME (PATIENT) 15.3 SEC (9.7-13.0)
[2022-05-10 18:09] LABS: CALCIUM 9.3 mg/dl (8.5-10)
[2022-05-10 18:13] LABS: ALBUMIN 3.6 g/dl (3.4-5.0); BILIRUBIN,TOTAL 0.6 mg/dl (0.2-1); CREATININE 1.4 mg/dl (0.55-1.3); TOT PROT 6.2 g/dl (6.4-8.2)
[2022-05-10 22:23] VITALS: BMI 29.5
[2022-05-10] MEDS: DEXTROSE 5%-NORMAL SALINE 1,000 ML IV SCH (23:28)
[2022-05-11 09:19] LABS: CALCIUM 8.9 mg/dl (8.5-10); CREATININE 1.4 mg/dl (0.55-1.3); MAGNESIUM 1.9 mg/dL (1.8-2.4); PHOSPHOROUS 3.6 mg/dl (2.5-4.9)
[2022-05-11] MEDS: LOSARTAN POTASSIUM 50 MG TABLET PO SCH (09:38)
[2022-05-11] MEDS: CHOLECALCIFEROL (VIT D3) 1,000 UNIT (25 MCG) TABLET PO SCH (09:38)
[2022-05-11 10:16] LABS: HEMATOCRIT 42.3 % (35.4-49); HEMOGLOBIN 14.1 GM/dL (11.7-16.9); MCH 31.1 pg (25.7-33.7); MCHC 33.4 g/dl (32.0-35.9); MEAN CELL VOLUME 93.1 fl (80-96); MEAN PLT VOLUME 8.1 fl (7.5-11.1); PLATELET COUNT 320 10^3/uL (134-434); RBC 4.55 M/mm3 (4.00-5.60); RDW 14.1 % (11.9-15.9); WHITE BLOOD COUNT 8.6 K/mm3 (4.0-10.0)
[2022-05-11 11:02] LABS: ANISOCYTOSIS 0; HELMET CELLS 0; HOWELL-JOLLY BODIES 0; MACROCYTOSIS 0; OVALOCYTE 0; ROULEAU 0; SICKELED CELLS 0; TARGET CELLS 0; TEAR DROP CELLS 0; TOXIC GRANULATION 0
[2022-05-11] MEDS: DEXTROSE 5%-NORMAL SALINE 1,000 ML IV SCH (22:49)
[2022-05-11] MEDS: ROSUVASTATIN CA 20 MG TABLET PO SCH ×2 (22:49→23:19)
[2022-05-12 08:28] LABS: BASO % 0.8 % (0-2.0); EOS % 1.1 % (0-4.5); HEMATOCRIT 40.4 % (35.4-49); HEMOGLOBIN 13.5 GM/dL (11.7-16.9); LYMPH % 15.8 % (8-40); MCH 30.3 pg (25.7-33.7); MCHC 33.4 g/dl (32.0-35.9); MEAN CELL VOLUME 90.5 fl (80-96); MEAN PLT VOLUME 7.2 fl (7.5-11.1); MONO % 11.8 % (3.8-10.2); NEUT % 70.5 % (42.8-82.8); PLATELET COUNT 272 10^3/uL (134-434); RBC 4.46 M/mm3 (4.00-5.60); RDW 13.4 % (11.9-15.9); WHITE BLOOD COUNT 6.1 K/mm3 (4.0-10.0)
[2022-05-12] MEDS: CHOLECALCIFEROL (VIT D3) 1,000 UNIT (25 MCG) TABLET PO SCH (09:21)
[2022-05-12] MEDS: LOSARTAN POTASSIUM 50 MG TABLET PO SCH (09:21)
[2022-05-12 10:42] LABS: ALBUMIN 2.7 g/dl (3.4-5.0); BILIRUBIN,TOTAL 0.5 mg/dL (0.2-1); BLOOD UREA NITROGEN 17.1 mg/dL (7-18); CALCIUM 8.6 mg/dL (8.5-10.1); CREATININE 1.4 mg/dL (0.55-1.3); TOT PROT 5.4 g/dl (6.4-8.2)
[2022-05-12] MEDS ORDERED: ACETAMINOPHEN 1000 MG/100 ML BAG IVPB PRN (14:23)
[2022-05-12] MEDS ORDERED: APIXABAN 5 MG TABLET PO ONE (14:34)
[2022-05-12] MEDS: CEFTRIAXONE 2 GM in DEXTROSE 5%-WATER 100 ML IVPB SCH (15:03)
[2022-05-12] MEDS: ROSUVASTATIN CA 20 MG TABLET PO SCH (22:35)
[2022-05-12] MEDS: DEXTROSE 5%-NORMAL SALINE 1,000 ML IV SCH (22:35)
[2022-05-12] MEDS: APIXABAN 5 MG TABLET PO SCH (22:36)
[2022-05-13] MEDS: DEXTROSE 5%-NORMAL SALINE 1,000 ML IV SCH (01:39)
[2022-05-13 08:27] LABS: BASO % 0.6 % (0-2.0); EOS % 1.7 % (0-4.5); HEMATOCRIT 40.8 % (35.4-49); HEMOGLOBIN 13.9 GM/dL (11.7-16.9); LYMPH % 14.2 % (8-40); MCH 30.4 pg (25.7-33.7); MEAN CELL VOLUME 89.5 fl (80-96); MEAN PLT VOLUME 7.5 fl (7.5-11.1); MONO % 9.7 % (3.8-10.2); NEUT % 73.8 % (42.8-82.8); PLATELET COUNT 314 10^3/uL (134-434); RBC 4.56 M/mm3 (4.00-5.60); RDW 13.6 % (11.9-15.9)
[2022-05-13 09:03] LABS: ALBUMIN 2.7 g/dl (3.4-5.0); BLOOD UREA NITROGEN 16.5 mg/dL (7-18); CALCIUM 8.6 mg/dL (8.5-10.1)
[2022-05-13 09:07] LABS: CREATININE 1.3 mg/dL (0.55-1.3); PHOSPHOROUS 3.1 mg/dL (2.5-4.9)
[2022-05-13 09:09] LABS: BILIRUBIN,TOTAL 0.3 mg/dL (0.2-1); TOT PROT 5.3 g/dl (6.4-8.2)
[2022-05-13] MEDS: CEFTRIAXONE 2 GM in DEXTROSE 5%-WATER 100 ML IVPB SCH (10:21)
[2022-05-13] MEDS: CHOLECALCIFEROL (VIT D3) 1,000 UNIT (25 MCG) TABLET PO SCH (10:22)
[2022-05-13] MEDS: LOSARTAN POTASSIUM 50 MG TABLET PO SCH (10:22)
[2022-05-13] MEDS: APIXABAN 5 MG TABLET PO SCH ×2 (10:23→22:57)
[2022-05-13] MEDS: ROSUVASTATIN CA 20 MG TABLET PO SCH (22:57)
[2022-05-14] MEDS: DEXTROSE 5%-NORMAL SALINE 1,000 ML IV SCH (01:46)
[2022-05-14 07:54] LABS: BASO % 1.1 % (0-2.0); EOS % 1.9 % (0-4.5); HEMATOCRIT 41.3 % (35.4-49); HEMOGLOBIN 13.8 GM/dL (11.7-16.9); LYMPH % 17.6 % (8-40); MCHC 33.5 g/dl (32.0-35.9); MEAN CELL VOLUME 89.4 fl (80-96); MEAN PLT VOLUME 7.6 fl (7.5-11.1); MONO % 10.2 % (3.8-10.2); NEUT % 69.2 % (42.8-82.8); PLATELET COUNT 334 10^3/uL (134-434); RBC 4.62 M/mm3 (4.00-5.60); RDW 13.4 % (11.9-15.9); WHITE BLOOD COUNT 4.9 K/mm3 (4.0-10.0)
[2022-05-14 08:18] LABS: ALBUMIN 2.9 g/dl (3.4-5.0); BLOOD UREA NITROGEN 14.2 mg/dL (7-18); CALCIUM 8.5 mg/dL (8.5-10.1); MAGNESIUM 1.8 mg/dL (1.8-2.4); PHOSPHOROUS 3.2 mg/dL (2.5-4.9); TOT PROT 5.6 g/dl (6.4-8.2)
[2022-05-14 08:19] LABS: BILIRUBIN,TOTAL 0.5 mg/dL (0.2-1)
[2022-05-14 08:20] LABS: CREATININE 1.4 mg/dL (0.55-1.3)
[2022-05-14] MEDS: CEFTRIAXONE 2 GM in DEXTROSE 5%-WATER 100 ML IVPB SCH (09:56)
[2022-05-14] MEDS: LOSARTAN POTASSIUM 50 MG TABLET PO SCH (09:57)
[2022-05-14] MEDS: APIXABAN 5 MG TABLET PO SCH ×2 (09:57→22:42)
[2022-05-14] MEDS: CHOLECALCIFEROL (VIT D3) 1,000 UNIT (25 MCG) TABLET PO SCH (09:57)
[2022-05-14] MEDS: ROSUVASTATIN CA 20 MG TABLET PO SCH (22:42)
[2022-05-15 07:34] LABS: ALBUMIN 2.8 g/dl (3.4-5.0); CALCIUM 8.4 mg/dL (8.5-10.1)
[2022-05-15 07:35] LABS: BLOOD UREA NITROGEN 11.9 mg/dL (7-18); MAGNESIUM 1.7 mg/dL (1.8-2.4)
[2022-05-15 07:38] LABS: CREATININE 1.4 mg/dL (0.55-1.3); PHOSPHOROUS 3.4 mg/dL (2.5-4.9)
[2022-05-15 07:39] LABS: BILIRUBIN,TOTAL 0.4 mg/dL (0.2-1); TOT PROT 5.2 g/dl (6.4-8.2)
[2022-05-15 07:48] LABS: BASO % 0.9 % (0-2.0); EOS % 2.6 % (0-4.5); HEMATOCRIT 40.4 % (35.4-49); HEMOGLOBIN 13.4 GM/dL (11.7-16.9); LYMPH % 20.1 % (8-40); MCH 30.4 pg (25.7-33.7); MCHC 33.3 g/dl (32.0-35.9); MEAN CELL VOLUME 91.4 fl (80-96); MEAN PLT VOLUME 7.8 fl (7.5-11.1); MONO % 9.9 % (3.8-10.2); NEUT % 66.5 % (42.8-82.8); PLATELET COUNT 333 10^3/uL (134-434); RBC 4.42 M/mm3 (4.00-5.60); RDW 13.5 % (11.9-15.9); WHITE BLOOD COUNT 5.7 K/mm3 (4.0-10.0)
[2022-05-15] MEDS ORDERED: MAGNESIUM SULF 50% (8.12 MEQ/2 ML-1 GM VIAL) IVPB ONE ×2 (08:10→10:30)
[2022-05-15] MEDS: APIXABAN 5 MG TABLET PO SCH ×2 (10:23→21:52)
[2022-05-15] MEDS: LOSARTAN POTASSIUM 50 MG TABLET PO SCH (10:23)
[2022-05-15] MEDS: CHOLECALCIFEROL (VIT D3) 1,000 UNIT (25 MCG) TABLET PO SCH (10:24)
[2022-05-15] MEDS: CEFTRIAXONE 2 GM in DEXTROSE 5%-WATER 100 ML IVPB SCH (12:33)
[2022-05-15] MEDS: ROSUVASTATIN CA 20 MG TABLET PO SCH (21:51)
[2022-05-16 08:12] LABS: BASO % 1.1 % (0-2.0); EOS % 2.3 % (0-4.5); HEMATOCRIT 39.7 % (35.4-49); HEMOGLOBIN 13.4 GM/dL (11.7-16.9); LYMPH % 18.7 % (8-40); MCH 30.2 pg (25.7-33.7); MCHC 33.8 g/dl (32.0-35.9); MEAN CELL VOLUME 89.6 fl (80-96); MEAN PLT VOLUME 7.8 fl (7.5-11.1); MONO % 9.2 % (3.8-10.2); NEUT % 68.7 % (42.8-82.8); PLATELET COUNT 309 10^3/uL (134-434); RBC 4.44 M/mm3 (4.00-5.60); RDW 13.5 % (11.9-15.9); WHITE BLOOD COUNT 5.3 K/mm3 (4.0-10.0)
[2022-05-16 08:38] LABS: ALBUMIN 2.8 g/dl (3.4-5.0); CALCIUM 8.4 mg/dL (8.5-10.1)
[2022-05-16 08:41] LABS: CREATININE 1.3 mg/dL (0.55-1.3); PHOSPHOROUS 2.9 mg/dL (2.5-4.9)
[2022-05-16 08:43] LABS: BILIRUBIN,TOTAL 0.4 mg/dL (0.2-1); TOT PROT 5.1 g/dl (6.4-8.2)
[2022-05-16 08:48] VITALS: BP 115/75; PULSE 89; RESP 20; TEMP 98.6
[2022-05-16] MEDS: CEFTRIAXONE 2 GM in DEXTROSE 5%-WATER 100 ML IVPB SCH (09:57)
[2022-05-16] MEDS: CHOLECALCIFEROL (VIT D3) 1,000 UNIT (25 MCG) TABLET PO SCH (09:58)
[2022-05-16] MEDS: LOSARTAN POTASSIUM 50 MG TABLET PO SCH (09:58)
[2022-05-16] MEDS: APIXABAN 5 MG TABLET PO SCH (09:58)
== END 2022-05-16 16:15 | disposition home or self-care (01) | DRG 392 ==
LOC: FER 15:55 → UNDOADMIN 21:28 → FM/S 21:28 → J7W 05-11 17:24
PROVIDERS: ADMIT Internal Medicine; ATTEND Internal Medicine
PROC: 02HV33Z Insertion of Infusion Device into Superior Vena Cava, Percutaneous Approach (ICD-10-PCS; principal; 2022-05-16)
PROC: B548ZZA Ultrasonography of Superior Vena Cava, Guidance (ICD-10-PCS; 2022-05-16)
DX: K57.20 Diverticulitis of large intestine with perforation and abscess without bleeding (principal); A04.72 Enterocolitis due to Clostridium difficile, not specified as recurrent; K21.9 Gastro-esophageal reflux disease without esophagitis; E78.5 Hyperlipidemia, unspecified; K57.90 Diverticulosis of intestine, part unspecified, without perforation or abscess without bleeding; I12.9 Hypertensive chronic kidney disease with stage 1 through stage 4 chronic kidney disease, or unspecified chronic kidney disease; N18.9 Chronic kidney disease, unspecified; Z86.718 Personal history of other venous thrombosis and embolism; Z86.711 Personal history of pulmonary embolism; Z85.46 Personal history of malignant neoplasm of prostate
CPT/HCPCS: 0241U-QW; 36415; 36569; 71045-TC-FY; 74176-TC; 77001-TC-FY; 80048; 80053; 83690; 83735; 84100; 85025; 85027; 85610; 85730; 86850; 86900; 86901; 87040; 87045; 87046; 87209; 87324; 87449; 87493; 93005; 97116-GP; 97161-GP; 99285-25; C1751

== ENCOUNTER 2022-05-17 13:15 | Day surgery (SDC) | payer OTHER, BC ==
[2022-05-17] MEDS ORDERED: cefTRIAXone 2 GM/100 ML BAG (PRE-DOCKED) IVPB SCH (13:45)
[2022-05-17 14:42] VITALS: BP 105/68; PULSE 92; RESP 18; TEMP 98.5
== END 2022-05-17 14:42 | disposition home or self-care (01) ==
LOC: FM/S 13:15 → FINFUSION 13:15
PROVIDERS: ATTEND Internal Medicine
DX: K57.80 Diverticulitis of intestine, part unspecified, with perforation and abscess without bleeding (principal)
CPT/HCPCS: 96365

== ENCOUNTER 2022-05-18 12:51 | Day surgery (SDC) | payer OTHER, BC ==
[2022-05-18] MEDS ORDERED: CEFTRIAXONE 2 GM in DEXTROSE 5%-WATER 100 ML IVPB ONE (13:45)
[2022-05-18 19:31] VITALS: BP 112/67; PULSE 76; RESP 18; TEMP 98.1
== END 2022-05-18 19:30 | disposition home or self-care (01) ==
LOC: FINFUSION 12:51 → FM/S 12:56 → FINFUSION 19:30
PROVIDERS: ATTEND Internal Medicine
DX: K57.80 Diverticulitis of intestine, part unspecified, with perforation and abscess without bleeding (principal)
CPT/HCPCS: 96365

== ENCOUNTER 2022-05-19 12:43 | Day surgery (SDC) | payer OTHER, BC ==
[2022-05-19] MEDS ORDERED: CEFTRIAXONE 2 GM in DEXTROSE 5%-WATER 100 ML IVPB ONE (13:15)
[2022-05-19 14:24] VITALS: BP 114/62; PULSE 74; RESP 19; TEMP 99.8
== END 2022-05-19 13:50 | disposition home or self-care (01) ==
LOC: FINFUSION 12:43 → FM/S 12:52 → FINFUSION 13:50
PROVIDERS: ATTEND Internal Medicine
DX: K57.80 Diverticulitis of intestine, part unspecified, with perforation and abscess without bleeding (principal)
CPT/HCPCS: 96365

== ENCOUNTER 2022-05-20 12:22 | Day surgery (SDC) | payer OTHER, BC ==
[2022-05-20] MEDS ORDERED: CEFTRIAXONE 2 GM in DEXTROSE 5%-WATER 100 ML IVPB ONE (13:00)
[2022-05-20 13:38] VITALS: BP 116/74; PULSE 94; RESP 19; TEMP 98.4
== END 2022-05-20 13:41 | disposition home or self-care (01) ==
LOC: FINFUSION 12:22 → FM/S 12:23 → FINFUSION 13:41
PROVIDERS: ATTEND Internal Medicine
DX: K57.80 Diverticulitis of intestine, part unspecified, with perforation and abscess without bleeding (principal)
CPT/HCPCS: 96365

== ENCOUNTER 2022-05-21 12:07 | Day surgery (SDC) | payer OTHER, BC ==
[2022-05-21] MEDS ORDERED: CEFTRIAXONE 2 GM in DEXTROSE 5%-WATER 100 ML IVPB ONE (12:30)
[2022-05-21 13:52] VITALS: BP 106/71; PULSE 85; RESP 18; TEMP 97.5
== END 2022-05-21 13:52 | disposition home or self-care (01) ==
LOC: FM/S 12:07 → FINFUSION 12:07
PROVIDERS: ATTEND Internal Medicine
DX: K57.80 Diverticulitis of intestine, part unspecified, with perforation and abscess without bleeding (principal)
CPT/HCPCS: 96365

== ENCOUNTER 2022-05-22 12:20 | Day surgery (SDC) | payer OTHER, BC ==
[2022-05-22] MEDS ORDERED: CEFTRIAXONE 2 GM in DEXTROSE 5%-WATER 100 ML IVPB ONE (13:00)
[2022-05-22 14:02] VITALS: BP 100/66; PULSE 90; RESP 16; TEMP 98.7
== END 2022-05-22 14:02 | disposition home or self-care (01) ==
LOC: FINFUSION 12:20 → FM/S 12:21 → FINFUSION 14:02
PROVIDERS: ATTEND Internal Medicine
DX: K57.80 Diverticulitis of intestine, part unspecified, with perforation and abscess without bleeding (principal)
CPT/HCPCS: 96365

== ENCOUNTER 2022-05-23 12:20 | Day surgery (SDC) | payer OTHER, BC ==
[2022-05-23] MEDS ORDERED: CEFTRIAXONE 2 GM in DEXTROSE 5%-WATER 100 ML IVPB ONE (12:45)
[2022-05-23 13:39] VITALS: BP 112/74; PULSE 75; RESP 18; TEMP 98.1
== END 2022-05-23 13:39 | disposition home or self-care (01) ==
LOC: FINFUSION 12:20 → FM/S 12:21 → FINFUSION 13:39
PROVIDERS: ATTEND Internal Medicine
DX: K57.80 Diverticulitis of intestine, part unspecified, with perforation and abscess without bleeding (principal)
CPT/HCPCS: 96365

== ENCOUNTER 2022-05-24 12:20 | Day surgery (SDC) | payer OTHER, BC ==
[2022-05-24] MEDS ORDERED: cefTRIAXone 2 GM/100 ML BAG (PRE-DOCKED) IVPB SCH (13:00)
[2022-05-24 13:42] VITALS: BP 106/65; PULSE 78; RESP 18; TEMP 97.7
== END 2022-05-24 13:43 | disposition home or self-care (01) ==
LOC: FINFUSION 12:20 → FM/S 12:29 → FINFUSION 13:43
PROVIDERS: ATTEND Internal Medicine
DX: K57.80 Diverticulitis of intestine, part unspecified, with perforation and abscess without bleeding (principal)
CPT/HCPCS: 96365

== ENCOUNTER 2022-05-25 13:02 | Day surgery (SDC) | payer OTHER, BC ==
[2022-05-25] MEDS ORDERED: CEFTRIAXONE 2 GM in DEXTROSE 5%-WATER 100 ML IVPB ONE (13:30)
[2022-05-25 14:21] VITALS: BP 100/60; PULSE 90; RESP 17; TEMP 98.1
== END 2022-05-25 14:22 | disposition home or self-care (01) ==
LOC: FINFUSION 13:02 → FM/S 13:03 → FINFUSION 14:22
PROVIDERS: ATTEND Internal Medicine
DX: K57.80 Diverticulitis of intestine, part unspecified, with perforation and abscess without bleeding (principal)
CPT/HCPCS: 96365

== ENCOUNTER 2022-05-26 12:31 | Day surgery (SDC) | payer OTHER, BC ==
[2022-05-26] MEDS ORDERED: CEFTRIAXONE 2 GM in DEXTROSE 5%-WATER 100 ML IVPB ONE (13:00)
[2022-05-26 13:30] VITALS: BP 114/70; PULSE 74; RESP 18; TEMP 98.4
== END 2022-05-26 13:30 | disposition home or self-care (01) ==
LOC: FINFUSION 12:31 → FM/S 12:38 → FINFUSION 13:30
PROVIDERS: ATTEND Internal Medicine
DX: K57.80 Diverticulitis of intestine, part unspecified, with perforation and abscess without bleeding (principal)
CPT/HCPCS: 96365

== ENCOUNTER 2022-05-27 12:27 | Day surgery (SDC) | payer OTHER, BC ==
[2022-05-27] MEDS ORDERED: CEFTRIAXONE 2 GM in DEXTROSE 5%-WATER 100 ML IVPB ONE (13:00)
[2022-05-27 13:48] VITALS: BP 115/68; PULSE 85; RESP 17; TEMP 98.2
== END 2022-05-27 13:49 | disposition home or self-care (01) ==
LOC: FINFUSION 12:27 → FM/S 12:32 → FINFUSION 13:49
PROVIDERS: ATTEND Internal Medicine
DX: K57.80 Diverticulitis of intestine, part unspecified, with perforation and abscess without bleeding (principal)
CPT/HCPCS: 96365

== ENCOUNTER 2022-05-28 12:22 | Day surgery (SDC) | payer OTHER, BC ==
[2022-05-28] MEDS ORDERED: CEFTRIAXONE 2 GM in DEXTROSE 5%-WATER 100 ML IVPB ONE (12:45)
[2022-05-28 13:53] VITALS: BP 140/72; PULSE 80; RESP 16; TEMP 97.7
== END 2022-05-28 13:53 | disposition home or self-care (01) ==
LOC: FINFUSION 12:22 → FM/S 12:22 → FINFUSION 13:53
PROVIDERS: ATTEND Internal Medicine
DX: K57.80 Diverticulitis of intestine, part unspecified, with perforation and abscess without bleeding (principal)
CPT/HCPCS: 96365

== ENCOUNTER 2022-05-29 12:07 | Day surgery (SDC) | payer OTHER, BC ==
[2022-05-29] MEDS ORDERED: CEFTRIAXONE 2 GM in DEXTROSE 5%-WATER 100 ML IVPB ONE (12:30)
[2022-05-29 14:15] VITALS: BP 118/74; PULSE 76; RESP 18; TEMP 98.5
== END 2022-05-29 14:27 | disposition home or self-care (01) ==
LOC: FINFUSION 12:07 → FM/S 12:10 → FINFUSION 14:27
PROVIDERS: ATTEND Pediatrics Pediatric Gastroenterology
DX: K57.80 Diverticulitis of intestine, part unspecified, with perforation and abscess without bleeding (principal)
CPT/HCPCS: 96365

== ENCOUNTER 2022-05-29 13:50 | Emergency (ER) | payer OTHER, BC ==
[2022-05-29 14:17] VITALS: BP 157/88; PULSE 82; RESP 18; TEMP 98; BMI 29.3
[2022-05-29] MEDS ORDERED: ACETAMINOPHEN 1000 MG/100 ML BAG IVPB ONE (14:30)
[2022-05-29] MEDS ORDERED: SODIUM CHLORIDE 500 ML IV STA (14:31)
[2022-05-29] MEDS ORDERED: ACETAMINOPHEN INJECTION 100 ML IVPB ONE (14:37)
[2022-05-29 15:12] LABS: HEMATOCRIT 46.6 % (35.4-49); HEMOGLOBIN 15.9 G/dL (11.7-16.9); MCH 31.3 pg (25.7-33.7); MCHC 34.1 g/dl (32.0-35.9); MEAN CELL VOLUME 91.6 fl (80-96); MEAN PLT VOLUME 8.2 fl (7.5-11.1); PLATELET COUNT 240.4 10^3/uL (134-434); RBC 5.09 10^6/uL (4.00-5.60); RDW 14.3 % (11.9-15.9); WHITE BLOOD COUNT 6.3 10^3/uL (4.0-10.8)
[2022-05-29 15:19] LABS: ALBUMIN 4.3 g/dl (3.4-5.0); BILIRUBIN,TOTAL 0.6 mg/dl (0.2-1); CALCIUM 9.4 mg/dl (8.5-10); CREATININE 1.3 mg/dl (0.55-1.3); TOT PROT 7.1 g/dl (6.4-8.2)
[2022-05-29 16:14] LABS: URINE MUCUS 1+
[2022-05-29 16:15] LABS: PLATELET ESTIMATE ADEQUATE
== END 2022-05-29 16:10 | disposition home or self-care (01) ==
LOC: FER 13:50
PROC: 3E033NZ Introduction of Analgesics, Hypnotics, Sedatives into Peripheral Vein, Percutaneous Approach (ICD-10-PCS; principal; 2022-05-29)
PROC: 3E0337Z Introduction of Electrolytic and Water Balance Substance into Peripheral Vein, Percutaneous Approach (ICD-10-PCS; 2022-05-29)
DX: S39.012A Strain of muscle, fascia and tendon of lower back, initial encounter (principal); Y99.9 Unspecified external cause status
CPT/HCPCS: 36415; 80053; 81003; 81015; 85027; 87086; 99284-25

== ENCOUNTER 2022-05-30 12:48 | Day surgery (SDC) | payer OTHER, BC ==
[2022-05-30] MEDS ORDERED: CEFTRIAXONE 2 GM in DEXTROSE 5%-WATER 100 ML IVPB ONE (13:15)
[2022-05-30 13:17] VITALS: BP 106/60; PULSE 91; RESP 18; TEMP 98.4
== END 2022-05-30 14:00 | disposition home or self-care (01) ==
LOC: FINFUSION 12:48 → FM/S 12:49 → FINFUSION 14:00
PROVIDERS: ATTEND Internal Medicine
DX: K57.80 Diverticulitis of intestine, part unspecified, with perforation and abscess without bleeding (principal)
CPT/HCPCS: 96365

== ENCOUNTER 2022-05-31 12:30 | Day surgery (SDC) | payer OTHER, BC ==
[2022-05-31] MEDS ORDERED: cefTRIAXone 2 GM/100 ML BAG (PRE-DOCKED) IVPB SCH (13:00)
[2022-05-31 14:28] VITALS: BP 116/72; PULSE 72; RESP 16; TEMP 98.3
== END 2022-05-31 14:46 | disposition home or self-care (01) ==
LOC: FM/S 12:30 → FINFUSION 12:30
PROVIDERS: ATTEND Internal Medicine
DX: K57.80 Diverticulitis of intestine, part unspecified, with perforation and abscess without bleeding (principal)
CPT/HCPCS: 36589; 96365

== ENCOUNTER 2022-06-08 06:58 | Inpatient (IN) | payer OTHER, BC ==
[2022-06-08 07:07] VITALS: BMI 26.6
[2022-06-08] MEDS ORDERED: SODIUM CHLORIDE 1,000 ML IV STA (07:33)
[2022-06-08] MEDS ORDERED: ACETAMINOPHEN 1000 MG/100 ML BAG IVPB ONE (07:33)
[2022-06-08] MEDS ORDERED: ACETAMINOPHEN INJECTION 100 ML IVPB ONE (08:08)
[2022-06-08 08:43] LABS: INR 1.5 (0.83-1.09); PROTHROMBIN TIME (PATIENT) 17.3 SEC (9.7-13.0)
[2022-06-08 08:49] LABS: ALBUMIN 3.8 g/dl (3.4-5.0); BILIRUBIN,TOTAL 1.1 mg/dl (0.2-1); CALCIUM 9.1 mg/dl (8.5-10); CREATININE 1.5 mg/dl (0.55-1.3); TOT PROT 6.4 g/dl (6.4-8.2)
[2022-06-08 08:51] LABS: ACTIVATED PTT 37.2 SECONDS (25.2-36.5)
[2022-06-08] MEDS ORDERED: morphine CARPU-JECT 4 MG/1 ML DISP.SYRIN IVPUSH ONE ×2 (10:31→12:22)
[2022-06-08 10:32] LABS: BASO % 0.3 % (0-2.0); EOS % 0.4 % (0-4.5); HEMATOCRIT 44.3 % (35.4-49); LYMPH % 8.8 % (8-40); MCH 30.6 pg (25.7-33.7); MCHC 33.8 g/dl (32.0-35.9); MEAN CELL VOLUME 90.4 fl (80-96); MEAN PLT VOLUME 8.7 fl (7.5-11.1); MONO % 10.9 % (3.8-10.2); NEUT % 79.6 % (42.8-82.8); PLATELET COUNT 219 10^3/uL (134-434); RDW 14.5 % (11.9-15.9)
[2022-06-08] MEDS ORDERED: morphine SULFATE 4 MG/ML VIAL ONE ×3 (10:36→12:30)
[2022-06-08] MEDS: DEXTROSE 5%-LACTATED RINGERS 1,000 ML IV SCH ×2 (12:37→23:32)
[2022-06-08] MEDS: ACETAMINOPHEN 1000 MG/100 ML BAG IVPB PRN (22:46)
[2022-06-09] MEDS: ACETAMINOPHEN 1000 MG/100 ML BAG IVPB PRN ×2 (04:21→17:15)
[2022-06-09 11:42] LABS: HEMATOCRIT 45.8 % (35.4-49); HEMOGLOBIN 15.9 GM/dL (11.7-16.9); MCH 30.9 pg (25.7-33.7); MCHC 34.8 g/dl (32.0-35.9); MEAN PLT VOLUME 8.5 fl (7.5-11.1); PLATELET COUNT 212 10^3/uL (134-434); RBC 5.15 M/mm3 (4.00-5.60); RDW 14.2 % (11.9-15.9)
[2022-06-09] MEDS: LOSARTAN POTASSIUM 50 MG TABLET PO SCH (11:47)
[2022-06-09 12:10] LABS: ALBUMIN 3.1 g/dl (3.4-5.0); BLOOD UREA NITROGEN 15.9 mg/dL (7-18); CALCIUM 9.4 mg/dL (8.5-10.1)
[2022-06-09 12:13] LABS: CREATININE 1.2 mg/dL (0.55-1.3)
[2022-06-09 12:15] LABS: BILIRUBIN,TOTAL 1.3 mg/dL (0.2-1); TOT PROT 6.4 g/dl (6.4-8.2)
[2022-06-09 12:30] LABS: ANISOCYTOSIS 0; HELMET CELLS 0; HOWELL-JOLLY BODIES 0; MACROCYTOSIS 0; OVALOCYTE 0; ROULEAU 0; SICKELED CELLS 0; TARGET CELLS 0; TEAR DROP CELLS 0; TOXIC GRANULATION 0
[2022-06-09] MEDS: FAMOTIDINE 20 MG/50 ML IVPB 20 MG/50 ML MG IVPB SCH (16:29)
[2022-06-09] MEDS: DEXTROSE 5%-LACTATED RINGERS 1,000 ML IV SCH (16:29)
[2022-06-09] MEDS ORDERED: ACETAMINOPHEN 325 MG TABLET (FP) PO PRN (17:05)
[2022-06-09] MEDS: amLODIPine BESYLATE 5 MG TABLET (FP) PO SCH (17:15)
[2022-06-10] MEDS: DEXTROSE 5%-LACTATED RINGERS 1,000 ML IV SCH ×2 (03:08→14:35)
[2022-06-10] MEDS ORDERED: BUPIVACAINE HCL/PF 0.25% (2.5MG/ML) 10 ML VIAL ONE (07:24)
[2022-06-10] MEDS ORDERED: PROPOFOL 20 ML ONE (10:02)
[2022-06-10] MEDS ORDERED: ROCURONIUM BROMIDE 50 MG/5 ML SYRINGE ONE ×2 (10:02→11:26)
[2022-06-10] MEDS ORDERED: NEOSTIGMINE METHYLSULFATE 0.5 MG/1 ML - 10 ML MDV ONE (11:22)
[2022-06-10] MEDS ORDERED: SUGAMMADEX SODIUM 200 MG/2 ML VIAL ONE (11:27)
[2022-06-10] MEDS ORDERED: ONDANSETRON 4 MG/2 ML VIAL IVPUSH PRN ×3 (12:08→12:19)
[2022-06-10] MEDS ORDERED: oxyCODONE HCL 5 MG TABLET PO PRN ×2 (12:19)
[2022-06-10] MEDS: MEROPENEM 1 GM in DEXTROSE 5%-WATER 100 ML IVPB SCH ×2 (12:58→18:02)
[2022-06-10] MEDS: LOSARTAN POTASSIUM 50 MG TABLET PO SCH (14:34)
[2022-06-10] MEDS: amLODIPine BESYLATE 5 MG TABLET (FP) PO SCH (14:35)
[2022-06-10] MEDS: FAMOTIDINE 20 MG/50 ML IVPB 20 MG/50 ML MG IVPB SCH (14:35)
[2022-06-10] MEDS: ACETAMINOPHEN 1000 MG/100 ML BAG IVPB PRN (17:26)
[2022-06-10] MEDS: APIXABAN 5 MG TABLET PO SCH (21:57)
[2022-06-11] MEDS: MEROPENEM 1 GM in DEXTROSE 5%-WATER 100 ML IVPB SCH ×3 (01:18→17:30)
[2022-06-11] MEDS: DEXTROSE 5%-LACTATED RINGERS 1,000 ML IV SCH ×2 (01:20→16:19)
[2022-06-11] MEDS: ACETAMINOPHEN 1000 MG/100 ML BAG IVPB PRN (08:30)
[2022-06-11 09:45] LABS: BASO % 0.2 % (0-2.0); HEMATOCRIT 39.7 % (35.4-49); HEMOGLOBIN 13.8 GM/dL (11.7-16.9); LYMPH % 5.7 % (8-40); MCH 30.8 pg (25.7-33.7); MCHC 34.6 g/dl (32.0-35.9); MEAN CELL VOLUME 89.1 fl (80-96); MEAN PLT VOLUME 8.5 fl (7.5-11.1); MONO % 8.3 % (3.8-10.2); NEUT % 85.8 % (42.8-82.8); PLATELET COUNT 266 10^3/uL (134-434); RBC 4.46 M/mm3 (4.00-5.60); RDW 14.7 % (11.9-15.9); WHITE BLOOD COUNT 12.6 K/mm3 (4.0-10.0)
[2022-06-11] MEDS: LOSARTAN POTASSIUM 50 MG TABLET PO SCH (10:01)
[2022-06-11] MEDS: FAMOTIDINE 20 MG/50 ML IVPB 20 MG/50 ML MG IVPB SCH (10:01)
[2022-06-11] MEDS: APIXABAN 5 MG TABLET PO SCH ×2 (10:01→21:07)
[2022-06-11] MEDS: amLODIPine BESYLATE 5 MG TABLET (FP) PO SCH (10:01)
[2022-06-11 10:16] LABS: BLOOD UREA NITROGEN 28.2 mg/dL (7-18); CALCIUM 8.6 mg/dL (8.5-10.1)
[2022-06-11 10:19] LABS: CREATININE 1.4 mg/dL (0.55-1.3)
[2022-06-11 10:21] LABS: BILIRUBIN,TOTAL 0.7 mg/dL (0.2-1); TOT PROT 5.4 g/dl (6.4-8.2)
[2022-06-11 10:50] LABS: ALBUMIN 2.4 g/dl (3.4-5.0)
[2022-06-11 15:44] VITALS: RESP 18
[2022-06-11] MEDS: ACETAMINOPHEN 325 MG TABLET (FP) PO PRN (21:07)
[2022-06-12] MEDS: MEROPENEM 1 GM in DEXTROSE 5%-WATER 100 ML IVPB SCH ×4 (01:44→18:47)
[2022-06-12 09:16] LABS: BASO % 0.4 % (0-2.0); EOS % 0.8 % (0-4.5); HEMATOCRIT 37.3 % (35.4-49); HEMOGLOBIN 13.1 GM/dL (11.7-16.9); MCH 31.4 pg (25.7-33.7); MCHC 35.1 g/dl (32.0-35.9); MEAN CELL VOLUME 89.6 fl (80-96); MEAN PLT VOLUME 8.9 fl (7.5-11.1); NEUT % 79.8 % (42.8-82.8); PLATELET COUNT 212 10^3/uL (134-434); RBC 4.17 M/mm3 (4.00-5.60); RDW 14.6 % (11.9-15.9); WHITE BLOOD COUNT 7.9 K/mm3 (4.0-10.0)
[2022-06-12] MEDS: ACETAMINOPHEN 325 MG TABLET (FP) PO PRN (09:22)
[2022-06-12] MEDS: amLODIPine BESYLATE 5 MG TABLET (FP) PO SCH (09:22)
[2022-06-12] MEDS: LOSARTAN POTASSIUM 50 MG TABLET PO SCH (09:22)
[2022-06-12] MEDS: APIXABAN 5 MG TABLET PO SCH ×2 (09:22→21:56)
[2022-06-12 09:53] LABS: ALBUMIN 2.3 g/dl (3.4-5.0); CALCIUM 8.2 mg/dL (8.5-10.1)
[2022-06-12 09:54] LABS: BLOOD UREA NITROGEN 25.8 mg/dL (7-18)
[2022-06-12 09:57] LABS: CREATININE 1.2 mg/dL (0.55-1.3)
[2022-06-12 09:58] LABS: BILIRUBIN,TOTAL 0.7 mg/dL (0.2-1); TOT PROT 5.1 g/dl (6.4-8.2)
[2022-06-12] MEDS: FAMOTIDINE 20 MG/50 ML IVPB 20 MG/50 ML MG IVPB SCH (14:30)
[2022-06-13] MEDS: MEROPENEM 1 GM in DEXTROSE 5%-WATER 100 ML IVPB SCH ×3 (02:06→17:48)
[2022-06-13] MEDS: APIXABAN 5 MG TABLET PO SCH (10:50)
[2022-06-13] MEDS: FAMOTIDINE 20 MG/50 ML IVPB 20 MG/50 ML MG IVPB SCH (10:50)
[2022-06-13] MEDS: LOSARTAN POTASSIUM 50 MG TABLET PO SCH (10:50)
[2022-06-13] MEDS: amLODIPine BESYLATE 5 MG TABLET (FP) PO SCH (10:50)
[2022-06-13] MEDS ORDERED: POTASSIUM CHLORIDE ORAL LIQUID 20 MEQ/15 ML PO ONE (11:17)
[2022-06-13] MEDS ORDERED: ACETAMINOPHEN 1000 MG/100 ML BAG IVPB PRN (12:28)
[2022-06-13 15:06] LABS: BASO % 0.5 % (0-2.0); EOS % 1.2 % (0-4.5); HEMATOCRIT 39.2 % (35.4-49); HEMOGLOBIN 13.7 GM/dL (11.7-16.9); LYMPH % 12.8 % (8-40); MCH 31.4 pg (25.7-33.7); MEAN CELL VOLUME 89.9 fl (80-96); MEAN PLT VOLUME 8.4 fl (7.5-11.1); MONO % 9.8 % (3.8-10.2); NEUT % 75.7 % (42.8-82.8); PLATELET COUNT 292 10^3/uL (134-434); RBC 4.36 M/mm3 (4.00-5.60); RDW 14.7 % (11.9-15.9); WHITE BLOOD COUNT 8.1 K/mm3 (4.0-10.0)
[2022-06-13 15:27] LABS: CALCIUM 8.2 mg/dL (8.5-10.1)
[2022-06-13 15:28] LABS: ALBUMIN 2.5 g/dl (3.4-5.0); BLOOD UREA NITROGEN 22.3 mg/dL (7-18)
[2022-06-13 15:31] LABS: CREATININE 1.1 mg/dL (0.55-1.3)
[2022-06-13 15:33] LABS: BILIRUBIN,TOTAL 0.6 mg/dL (0.2-1); TOT PROT 5.6 g/dl (6.4-8.2)
[2022-06-13 17:00] VITALS: BP 143/84; PULSE 105; TEMP 98.3
== END 2022-06-13 18:33 | disposition home or self-care (01) | DRG 418 ==
LOC: SUPCPDRO 06:58 → FER 06:58 → J5S 18:15 → JASUSAT 18:15
PROC: 0FT44ZZ Resection of Gallbladder, Percutaneous Endoscopic Approach (ICD-10-PCS; principal; 2022-06-10 10:38)
DX: K80.00 Calculus of gallbladder with acute cholecystitis without obstruction (principal); D68.61 Antiphospholipid syndrome; K82.A2 Perforation of gallbladder in cholecystitis; J98.11 Atelectasis; K82.A1 Gangrene of gallbladder in cholecystitis; I10 Essential (primary) hypertension; E78.5 Hyperlipidemia, unspecified; Z85.46 Personal history of malignant neoplasm of prostate; Z86.718 Personal history of other venous thrombosis and embolism
CPT/HCPCS: 0241U-QW; 36415; 71045-TC-FY; 74177-TC; 76700-TC; 80053; 82962; 83690; 85025; 85610; 85730; 88304-TC; 93005; 93306-TC; 94010; 94760; 99285-25; Q9967

== ENCOUNTER 2023-04-20 15:25 | Emergency (ER) | payer OTHER, BC ==
[2023-04-20 15:38] VITALS: TEMP 98; BMI 29.9
[2023-04-20] MEDS ORDERED: DEXAMETHASONE SOD PHOSPHATE 10 MG/1 ML VIAL ONE (16:16)
[2023-04-20] MEDS ORDERED: ACETAMINOPHEN 500 MG TABLET (FP) ONE (16:17)
[2023-04-20] MEDS: ACETAMINOPHEN 325 MG TABLET (FP) PO ONE (16:20)
[2023-04-20] MEDS: DEXAMETHASONE LIQUID 0.5 MG/5 ML PO ONE ×2 (16:20→16:23)
[2023-04-20 16:42] VITALS: BP 131/77; PULSE 89; RESP 16
[2023-04-20 18:36] LABS: THROAT:GRP A STREP NOT DETECTED (NOTDETECTED)
== END 2023-04-20 17:00 | disposition home or self-care (01) ==
LOC: SUPCPDRO 15:25 → FER 15:25
DX: R05.9 Cough, unspecified (principal); J02.9 Acute pharyngitis, unspecified; Z20.822 Contact with and (suspected) exposure to COVID-19
CPT/HCPCS: 0241U-QW; 87651; 99283-25

== ENCOUNTER 2024-08-09 12:13 | Emergency (ER) | payer OTHER, BC ==
[2024-08-09 12:24] VITALS: BP 139/99; PULSE 90; RESP 18; TEMP 98.6; BMI 29.9
== END 2024-08-09 14:30 | disposition home or self-care (01) ==
LOC: FER 12:13
DX: M25.571 Pain in right ankle and joints of right foot (principal)
CPT/HCPCS: 93970-TC; 99284-25